=== PATIENT | male | born 2000 | race Two or more races ===

== ENCOUNTER 2023-04-14 10:52 | Inpatient (IN) | payer OTHER, MEDICAID ==
[~2023-04-14] VITALS: Ht 172.7 cm; Wt 51.7 kg
[2023-04-14 13:06] LABS: BASOPHILS % (AUTO) 0.4 % (0.0-2.0); EOSINOPHILS % (AUTO) 1.8 % (1.0-6.0); HEMATOCRIT 41.9 % (41-53); HEMOGLOBIN 13.3 g/dL (13.5-17.5); LYMPHOCYTES # (AUTO) 3.1 K/uL (1.0-4.8); LYMPHOCYTES % (AUTO) 19.8 % (22.0-44.0); MEAN CORPUSCULAR HGB CONC 31.7 G/dL (31.0-37.0); MEAN CORPUSCULAR VOLUME 73 fL (80-100); MONOCYTES % (AUTO) 6.5 % (2.0-9.0); NEUTROPHILS # (AUTO) 11.1 K/uL (1.8-7.7); NEUTROPHILS % (AUTO) 71.5 % (40.0-70.0); PLATELET COUNT (AUTO) 396 K/uL (150-450); RED BLOOD CELL COUNT(AUTO) 5.78 MIL/uL (4.50-5.90)
[2023-04-14 13:17] LABS: ANION GAP 9 mmol/L (8-16); CALCIUM, TOTAL 9.1 mg/dL (8.8-10.5); CARBON DIOXIDE 29 mmol/L (22-29); CHLORIDE 102 mmol/L (98-107); CREATININE 0.76 mg/dL (0.60-1.30); GLOMERULAR FILTR. RATE CALC > 60 mL/min (>60); GLUCOSE,RANDOM 91 mg/dL (70-110); POTASSIUM 4.2 mmol/L (3.5-5.1); SODIUM SERUM 140 mmol/L (136-145)
[2023-04-14 13:22] LABS: ALANINE AMINOTRANSFERASE 62 U/L (12-78); ALBUMIN 3.1 g/dL (3.4-5.0); ALKALINE PHOSPHATASE 154 U/L (46-116); ASPARTATE AMINOTRANSFERASE 31 U/L (15-37); BILIRUBIN,TOTAL 0.2 mg/dL (0.1-1.0); TOTAL PROTEIN, SERUM 8.5 g/dL (6.4-8.2)
[2023-04-14 15:04] LABS: COVID AG,FIA SOURCE NASAL SWAB
[2023-04-14 16:52] VITALS: BP 121/80; PULSE 73; RESP 18; TEMP 99.4
[2023-04-14] MEDS ORDERED: PNEUMOCOCCAL VACCINE POLYVALENT 0.5 ML VIAL [PPSV23] IM. ONE (17:30)
[2023-04-14 20:04] VITALS: BP 135/66; PULSE 93; RESP 18; TEMP 98.1
[2023-04-14 23:25] VITALS: BP 113/71; PULSE 81; RESP 18; TEMP 98
[2023-04-15] VITALS (7 sets, daily range): BP systolic 99–109; BP diastolic 64–69; PULSE 65–95; RESP 16–18; TEMP 97.7–99.3; O2SAT 98–99
[2023-04-15] MEDS ORDERED: SODIUM CHLORIDE 0.9% 250 ML IV ONE (13:43)
[2023-04-15] MEDS: PIPERACILLIN/TAZO 3.375 GM/D5W 50 ML IV SCH ×2 (14:03→21:34)
[2023-04-15] MEDS ORDERED: BISACODYL 10 MG RECTAL RECTAL SUPPOSITORY PR PRN (18:30)
[2023-04-15] MEDS ORDERED: IPRATROPIUM BROMIDE 0.5 MG/2.5 ML NEB SOLUTION NEB PRN (18:30)
[2023-04-15] MEDS ORDERED: MAGNESIUM HYDROXIDE SUSPENSION 30 ML UDCUP PO PRN (18:30)
[2023-04-15] MEDS ORDERED: ALBUTEROL SULFATE 2.5 MG/0.5 ML NEB SOLUTION NEB PRN (18:30)
[2023-04-15] MEDS ORDERED: ONDANSETRON HCL 4 MG/2 ML VIAL IVP PRN (18:30)
[2023-04-15] MEDS ORDERED: ZOLPIDEM TARTRATE 5 MG TABLET PO PRN (18:30)
[2023-04-15] MEDS: DOCUSATE SODIUM 100 MG CAPSULE PO SCH (21:21)
[2023-04-15] MEDS ORDERED: 0.9% SODIUM CHLORIDE 15 ML NEB SOLUTION NEB ONE (22:37)
[2023-04-16] MEDS: HEPARIN SODIUM,PORCINE 5,000 UNITS/ML VIAL SQ SCH ×4 (00:26→23:32)
[2023-04-16] MEDS: PIPERACILLIN/TAZO 3.375 GM/D5W 50 ML IV SCH ×4 (02:14→20:44)
[2023-04-16 05:21] VITALS: BP 111/64; PULSE 59; RESP 18; TEMP 97.8
[2023-04-16 08:30] VITALS: BP 105/65; PULSE 71; RESP 18; TEMP 97.8
[2023-04-16] MEDS: PANTOPRAZOLE SODIUM 40 MG/VIAL IVP SCH (08:43)
[2023-04-16] MEDS: DOCUSATE SODIUM 100 MG CAPSULE PO SCH ×2 (08:43→21:00)
[2023-04-16 12:40] VITALS: BP 120/80; PULSE 88; RESP 17; TEMP 97.4
[2023-04-16] MEDS ORDERED: SODIUM CHLORIDE 0.9% 250 ML IV ONE (16:18)
[2023-04-16 18:35] VITALS: BP 106/66; PULSE 74; RESP 16; TEMP 98.9
[2023-04-16] MEDS ORDERED: *CLINICAL-RX DOSING [ENTER DRUG IN COMMENTS] CLINICAL ONE (19:15)
[2023-04-16 20:16] VITALS: BP 97/61; PULSE 68; RESP 18; TEMP 99.5
[2023-04-16] MEDS: ETHAMBUTOL HCL 400 MG TABLET PO SCH (21:08)
[2023-04-16] MEDS: PYRAZINAMIDE 500 MG TABLET PO SCH (21:08)
[2023-04-16] MEDS: PYRIDOXINE HCL 50 MG TABLET PO SCH (21:08)
[2023-04-16] MEDS: RIFAMPIN 300 MG CAPSULE PO SCH (21:08)
[2023-04-16] MEDS: ISONIAZID 300 MG TABLET PO SCH (21:09)
[2023-04-17] MEDS: PIPERACILLIN/TAZO 3.375 GM/D5W 50 ML IV SCH ×4 (02:28→20:21)
[2023-04-17 04:06] LABS: HIV 1-2 SCREEN 4TH GEN W/RFLX Non Reactive (Non Reactive)
[2023-04-17 05:56] VITALS: BP 100/65; PULSE 61; RESP 16; TEMP 97.8
[2023-04-17 08:15] VITALS: BP 86/56; PULSE 76; RESP 18; TEMP 98
[2023-04-17] MEDS: DOCUSATE SODIUM 100 MG CAPSULE PO SCH ×2 (09:23→20:47)
[2023-04-17] MEDS: HEPARIN SODIUM,PORCINE 5,000 UNITS/ML VIAL SQ SCH ×3 (09:23→23:20)
[2023-04-17] MEDS: PANTOPRAZOLE SODIUM 40 MG/VIAL IVP SCH (09:23)
[2023-04-17] MEDS: PYRAZINAMIDE 500 MG TABLET PO SCH (09:24)
[2023-04-17] MEDS: ISONIAZID 300 MG TABLET PO SCH (09:24)
[2023-04-17] MEDS: ETHAMBUTOL HCL 400 MG TABLET PO SCH (09:24)
[2023-04-17] MEDS: RIFAMPIN 300 MG CAPSULE PO SCH (09:24)
[2023-04-17] MEDS: PYRIDOXINE HCL 50 MG TABLET PO SCH (09:24)
[2023-04-17 12:00] VITALS: BP 92/58; PULSE 70; RESP 20; TEMP 98.1
[2023-04-17 16:50] VITALS: BP 98/54; PULSE 64; RESP 20; TEMP 98.1
[2023-04-17 19:28] VITALS: BP 104/58; PULSE 68; RESP 16; TEMP 99.2
[2023-04-17 20:55] LABS: BASOPHILS % (AUTO) 0.7 % (0.0-2.0); EOSINOPHILS % (AUTO) 3.5 % (1.0-6.0); HEMATOCRIT 42.1 % (41-53); HEMOGLOBIN 13.2 g/dL (13.5-17.5); LYMPHOCYTES # (AUTO) 2.6 K/uL (1.0-4.8); LYMPHOCYTES % (AUTO) 19.9 % (22.0-44.0); MEAN CORPUSCULAR HGB CONC 31.3 G/dL (31.0-37.0); MEAN CORPUSCULAR VOLUME 73 fL (80-100); MONOCYTES % (AUTO) 7.7 % (2.0-9.0); NEUTROPHILS # (AUTO) 8.9 K/uL (1.8-7.7); NEUTROPHILS % (AUTO) 68.2 % (40.0-70.0); PLATELET COUNT (AUTO) 369 K/uL (150-450); RED BLOOD CELL COUNT(AUTO) 5.75 MIL/uL (4.50-5.90); RED CELL DISTRIBUTION WIDTH 18.8 % (11.5-14.5)
[2023-04-17 21:04] LABS: ANION GAP 5 mmol/L (8-16); CALCIUM, TOTAL 8.6 mg/dL (8.8-10.5); CARBON DIOXIDE 28 mmol/L (22-29); CHLORIDE 104 mmol/L (98-107); CREATININE 0.97 mg/dL (0.60-1.30); GLOMERULAR FILTR. RATE CALC > 60 mL/min (>60); GLUCOSE,RANDOM 111 mg/dL (70-110); POTASSIUM 3.7 mmol/L (3.5-5.1); SODIUM SERUM 137 mmol/L (136-145)
[2023-04-17 21:09] LABS: ALANINE AMINOTRANSFERASE 29 U/L (12-78); ALKALINE PHOSPHATASE 149 U/L (46-116); ASPARTATE AMINOTRANSFERASE 21 U/L (15-37); BILIRUBIN,TOTAL 0.6 mg/dL (0.1-1.0); TOTAL PROTEIN, SERUM 8.2 g/dL (6.4-8.2)
[2023-04-18] MEDS: PIPERACILLIN/TAZO 3.375 GM/D5W 50 ML IV SCH ×4 (02:24→20:57)
[2023-04-18 04:33] VITALS: BP 98/58; PULSE 60; RESP 17; TEMP 97.9
[2023-04-18 06:46] LABS: BASOPHILS % (AUTO) 0.5 % (0.0-2.0); EOSINOPHILS % (AUTO) 3.1 % (1.0-6.0); HEMATOCRIT 42.4 % (41-53); HEMOGLOBIN 13.5 g/dL (13.5-17.5); LYMPHOCYTES # (AUTO) 2.9 K/uL (1.0-4.8); LYMPHOCYTES % (AUTO) 22.6 % (22.0-44.0); MEAN CORPUSCULAR HEMOGLOBIN 23.4 pg (26.0-34.0); MEAN CORPUSCULAR HGB CONC 31.9 G/dL (31.0-37.0); MEAN CORPUSCULAR VOLUME 73 fL (80-100); MONOCYTES # (AUTO) 1.2 K/uL (0.1-1.0); MONOCYTES % (AUTO) 9.4 % (2.0-9.0); NEUTROPHILS # (AUTO) 8.3 K/uL (1.8-7.7); NEUTROPHILS % (AUTO) 64.4 % (40.0-70.0); PLATELET COUNT (AUTO) 366 K/uL (150-450); RED BLOOD CELL COUNT(AUTO) 5.78 MIL/uL (4.50-5.90); RED CELL DISTRIBUTION WIDTH 18.5 % (11.5-14.5)
[2023-04-18 07:24] LABS: ALANINE AMINOTRANSFERASE 30 U/L (12-78); ALBUMIN 2.9 g/dL (3.4-5.0); ALKALINE PHOSPHATASE 131 U/L (46-116); ANION GAP 9 mmol/L (8-16); ASPARTATE AMINOTRANSFERASE 21 U/L (15-37); BILIRUBIN,TOTAL 0.4 mg/dL (0.1-1.0); CALCIUM, TOTAL 8.9 mg/dL (8.8-10.5); CARBON DIOXIDE 27 mmol/L (22-29); CHLORIDE 100 mmol/L (98-107); CREATININE 0.92 mg/dL (0.60-1.30); GLOMERULAR FILTR. RATE CALC > 60 mL/min (>60); GLUCOSE,RANDOM 90 mg/dL (70-110); POTASSIUM 4.1 mmol/L (3.5-5.1); SODIUM SERUM 136 mmol/L (136-145); TOTAL PROTEIN, SERUM 8.2 g/dL (6.4-8.2)
[2023-04-18 08:01] VITALS: BP 98/60; PULSE 72; RESP 17; TEMP 98
[2023-04-18] MEDS: RIFAMPIN 300 MG CAPSULE PO SCH (09:23)
[2023-04-18] MEDS: PYRAZINAMIDE 500 MG TABLET PO SCH (09:23)
[2023-04-18] MEDS: PANTOPRAZOLE SODIUM 40 MG/VIAL IVP SCH (09:23)
[2023-04-18] MEDS: HEPARIN SODIUM,PORCINE 5,000 UNITS/ML VIAL SQ SCH ×2 (09:23→16:47)
[2023-04-18] MEDS: DOCUSATE SODIUM 100 MG CAPSULE PO SCH ×2 (09:24→20:57)
[2023-04-18] MEDS: PYRIDOXINE HCL 50 MG TABLET PO SCH (09:24)
[2023-04-18] MEDS: ISONIAZID 300 MG TABLET PO SCH (09:24)
[2023-04-18] MEDS: ETHAMBUTOL HCL 400 MG TABLET PO SCH (09:24)
[2023-04-18 11:37] VITALS: BP 94/56; PULSE 67; RESP 19; TEMP 98.7
[2023-04-18 15:30] VITALS: BP 113/68; PULSE 83; RESP 17; TEMP 98.8
[2023-04-18 21:14] VITALS: BP 107/62; PULSE 66; RESP 18; TEMP 97.9
[2023-04-19] MEDS: HEPARIN SODIUM,PORCINE 5,000 UNITS/ML VIAL SQ SCH ×4 (00:51→23:30)
[2023-04-19] MEDS: PIPERACILLIN/TAZO 3.375 GM/D5W 50 ML IV SCH ×4 (01:40→20:10)
[2023-04-19 01:43] VITALS: BP 104/69; PULSE 63; RESP 20; TEMP 99.1
[2023-04-19 05:18] VITALS: BP 104/63; PULSE 61; RESP 20; TEMP 99
[2023-04-19 07:25] LABS: BASOPHILS % (AUTO) 0.4 % (0.0-2.0); HEMATOCRIT 41.3 % (41-53); HEMOGLOBIN 12.9 g/dL (13.5-17.5); LYMPHOCYTES % (AUTO) 27.3 % (22.0-44.0); MEAN CORPUSCULAR HEMOGLOBIN 22.8 pg (26.0-34.0); MEAN CORPUSCULAR HGB CONC 31.3 G/dL (31.0-37.0); MEAN CORPUSCULAR VOLUME 73 fL (80-100); MONOCYTES # (AUTO) 1.2 K/uL (0.1-1.0); MONOCYTES % (AUTO) 8.4 % (2.0-9.0); NEUTROPHILS # (AUTO) 8.8 K/uL (1.8-7.7); NEUTROPHILS % (AUTO) 60.9 % (40.0-70.0); PLATELET COUNT (AUTO) 371 K/uL (150-450); RED BLOOD CELL COUNT(AUTO) 5.66 MIL/uL (4.50-5.90)
[2023-04-19 07:39] LABS: ALANINE AMINOTRANSFERASE 35 U/L (12-78); ALBUMIN 2.9 g/dL (3.4-5.0); ALKALINE PHOSPHATASE 138 U/L (46-116); ANION GAP 8 mmol/L (8-16); ASPARTATE AMINOTRANSFERASE 33 U/L (15-37); BILIRUBIN,TOTAL 0.3 mg/dL (0.1-1.0); CALCIUM, TOTAL 8.9 mg/dL (8.8-10.5); CARBON DIOXIDE 28 mmol/L (22-29); CHLORIDE 103 mmol/L (98-107); CREATININE 0.82 mg/dL (0.60-1.30); GLOMERULAR FILTR. RATE CALC > 60 mL/min (>60); GLUCOSE,RANDOM 95 mg/dL (70-110); POTASSIUM 3.9 mmol/L (3.5-5.1); SODIUM SERUM 138 mmol/L (136-145); TOTAL PROTEIN, SERUM 8.3 g/dL (6.4-8.2)
[2023-04-19 08:14] VITALS: BP 142/82; PULSE 70; RESP 19; TEMP 98.6
[2023-04-19] MEDS: ETHAMBUTOL HCL 100 MG TABLET PO SCH (08:43)
[2023-04-19] MEDS: RIFAMPIN 300 MG CAPSULE PO SCH (08:43)
[2023-04-19] MEDS: DOCUSATE SODIUM 100 MG CAPSULE PO SCH ×2 (08:43→20:10)
[2023-04-19] MEDS: ISONIAZID 300 MG TABLET PO SCH (08:44)
[2023-04-19] MEDS: ETHAMBUTOL HCL 400 MG TABLET PO SCH (08:44)
[2023-04-19] MEDS: PYRIDOXINE HCL 50 MG TABLET PO SCH (08:44)
[2023-04-19] MEDS: PYRAZINAMIDE 500 MG TABLET PO SCH (08:44)
[2023-04-19] MEDS: PANTOPRAZOLE SODIUM 40 MG/VIAL IVP SCH (08:45)
[2023-04-19] MEDS ORDERED: SODIUM CHLORIDE 0.9% 1,000 ML ONE (13:17)
[2023-04-19 15:06] VITALS: BP 120/77; PULSE 69; RESP 20; TEMP 98.5
[2023-04-19 16:28] VITALS: BP 115/72; PULSE 66; RESP 20; TEMP 97.5
[2023-04-19] MEDS ORDERED: SODIUM CHLORIDE 0.9% 500 ML IV ONE (19:42)
[2023-04-19 20:24] VITALS: BP 114/70; PULSE 75; RESP 20; TEMP 98.5
[2023-04-20] MEDS: PIPERACILLIN/TAZO 3.375 GM/D5W 50 ML IV SCH ×4 (01:40→20:33)
[2023-04-20 05:44] VITALS: BP 119/69; PULSE 72; RESP 20; TEMP 98.1
[2023-04-20 07:32] LABS: BASOPHILS % (AUTO) 0.7 % (0.0-2.0); EOSINOPHILS % (AUTO) 3.2 % (1.0-6.0); HEMATOCRIT 41.7 % (41-53); HEMOGLOBIN 13.1 g/dL (13.5-17.5); LYMPHOCYTES # (AUTO) 3.4 K/uL (1.0-4.8); LYMPHOCYTES % (AUTO) 23.2 % (22.0-44.0); MEAN CORPUSCULAR HGB CONC 31.4 G/dL (31.0-37.0); MEAN CORPUSCULAR VOLUME 73 fL (80-100); MONOCYTES # (AUTO) 1.5 K/uL (0.1-1.0); MONOCYTES % (AUTO) 10.1 % (2.0-9.0); NEUTROPHILS # (AUTO) 9.3 K/uL (1.8-7.7); NEUTROPHILS % (AUTO) 62.8 % (40.0-70.0); PLATELET COUNT (AUTO) 377 K/uL (150-450); RED BLOOD CELL COUNT(AUTO) 5.71 MIL/uL (4.50-5.90); RED CELL DISTRIBUTION WIDTH 18.7 % (11.5-14.5)
[2023-04-20 07:51] VITALS: BP 110/64; PULSE 70; RESP 20; TEMP 98.4
[2023-04-20 07:54] LABS: ALANINE AMINOTRANSFERASE 63 U/L (12-78); ALBUMIN 2.8 g/dL (3.4-5.0); ALKALINE PHOSPHATASE 132 U/L (46-116); ANION GAP 7 mmol/L (8-16); ASPARTATE AMINOTRANSFERASE 62 U/L (15-37); BILIRUBIN,TOTAL 0.3 mg/dL (0.1-1.0); CALCIUM, TOTAL 8.9 mg/dL (8.8-10.5); CARBON DIOXIDE 28 mmol/L (22-29); CHLORIDE 100 mmol/L (98-107); CREATININE 0.87 mg/dL (0.60-1.30); GLOMERULAR FILTR. RATE CALC > 60 mL/min (>60); GLUCOSE,RANDOM 83 mg/dL (70-110); POTASSIUM 4.1 mmol/L (3.5-5.1); SODIUM SERUM 135 mmol/L (136-145); TOTAL PROTEIN, SERUM 8.2 g/dL (6.4-8.2)
[2023-04-20] MEDS: ETHAMBUTOL HCL 100 MG TABLET PO SCH (09:01)
[2023-04-20] MEDS: HEPARIN SODIUM,PORCINE 5,000 UNITS/ML VIAL SQ SCH ×3 (09:01→23:26)
[2023-04-20] MEDS: PANTOPRAZOLE SODIUM 40 MG/VIAL IVP SCH (09:01)
[2023-04-20] MEDS: ETHAMBUTOL HCL 400 MG TABLET PO SCH (09:03)
[2023-04-20] MEDS: DOCUSATE SODIUM 100 MG CAPSULE PO SCH ×2 (09:04→20:33)
[2023-04-20] MEDS: RIFAMPIN 300 MG CAPSULE PO SCH (09:04)
[2023-04-20] MEDS: ISONIAZID 300 MG TABLET PO SCH (09:05)
[2023-04-20] MEDS: PYRAZINAMIDE 500 MG TABLET PO SCH (09:05)
[2023-04-20] MEDS: PYRIDOXINE HCL 50 MG TABLET PO SCH (09:05)
[2023-04-20 15:36] VITALS: BP 120/68; PULSE 74; RESP 18; TEMP 98.2
[2023-04-20 19:35] VITALS: BP 139/74; PULSE 80; RESP 20; TEMP 98.1
[2023-04-21] MEDS: PIPERACILLIN/TAZO 3.375 GM/D5W 50 ML IV SCH ×4 (01:32→20:13)
[2023-04-21 04:58] VITALS: BP 118/72; PULSE 71; RESP 20; TEMP 98.3
[2023-04-21 07:22] LABS: BASOPHILS % (AUTO) 0.6 % (0.0-2.0); EOSINOPHILS % (AUTO) 2.6 % (1.0-6.0); HEMATOCRIT 43.9 % (41-53); HEMOGLOBIN 13.7 g/dL (13.5-17.5); LYMPHOCYTES # (AUTO) 3.8 K/uL (1.0-4.8); LYMPHOCYTES % (AUTO) 26.1 % (22.0-44.0); MEAN CORPUSCULAR HGB CONC 31.2 G/dL (31.0-37.0); MEAN CORPUSCULAR VOLUME 74 fL (80-100); MONOCYTES # (AUTO) 1.5 K/uL (0.1-1.0); MONOCYTES % (AUTO) 10.4 % (2.0-9.0); NEUTROPHILS # (AUTO) 8.8 K/uL (1.8-7.7); NEUTROPHILS % (AUTO) 60.3 % (40.0-70.0); PLATELET COUNT (AUTO) 371 K/uL (150-450); RED BLOOD CELL COUNT(AUTO) 5.95 MIL/uL (4.50-5.90); RED CELL DISTRIBUTION WIDTH 19.3 % (11.5-14.5)
[2023-04-21 07:46] LABS: ALANINE AMINOTRANSFERASE 86 U/L (12-78); ALBUMIN 2.9 g/dL (3.4-5.0); ALKALINE PHOSPHATASE 144 U/L (46-116); ANION GAP 9 mmol/L (8-16); ASPARTATE AMINOTRANSFERASE 87 U/L (15-37); BILIRUBIN,TOTAL 0.4 mg/dL (0.1-1.0); CALCIUM, TOTAL 9.3 mg/dL (8.8-10.5); CARBON DIOXIDE 28 mmol/L (22-29); CHLORIDE 101 mmol/L (98-107); CREATININE 0.87 mg/dL (0.60-1.30); GLOMERULAR FILTR. RATE CALC > 60 mL/min (>60); GLUCOSE,RANDOM 82 mg/dL (70-110); POTASSIUM 4.2 mmol/L (3.5-5.1); SODIUM SERUM 138 mmol/L (136-145); TOTAL PROTEIN, SERUM 8.6 g/dL (6.4-8.2)
[2023-04-21 08:00] VITALS: BP 115/63; PULSE 86; RESP 19; TEMP 98.3
[2023-04-21 08:19] VITALS: BP_SYST 115; BP_SYST 121; BP_DIAS 58; BP_DIAS 63; PULSE 74; PULSE 87; RESP 18; RESP 19; TEMP 98.1; TEMP 98.3
[2023-04-21] MEDS: PANTOPRAZOLE SODIUM 40 MG/VIAL IVP SCH (08:27)
[2023-04-21] MEDS: HEPARIN SODIUM,PORCINE 5,000 UNITS/ML VIAL SQ SCH ×3 (08:27→23:59)
[2023-04-21] MEDS: ETHAMBUTOL HCL 400 MG TABLET PO SCH (08:28)
[2023-04-21] MEDS: ETHAMBUTOL HCL 100 MG TABLET PO SCH (08:28)
[2023-04-21] MEDS: ISONIAZID 300 MG TABLET PO SCH (08:29)
[2023-04-21] MEDS: RIFAMPIN 300 MG CAPSULE PO SCH (08:29)
[2023-04-21] MEDS: PYRIDOXINE HCL 50 MG TABLET PO SCH (08:29)
[2023-04-21] MEDS: DOCUSATE SODIUM 100 MG CAPSULE PO SCH ×2 (08:29→20:13)
[2023-04-21] MEDS: PYRAZINAMIDE 500 MG TABLET PO SCH (08:30)
[2023-04-21 15:12] VITALS: BP 114/59; PULSE 75; RESP 18; TEMP 98.6
[2023-04-21 20:18] VITALS: BP 119/74; PULSE 79; RESP 19; TEMP 98.4
[2023-04-22] MEDS ORDERED: SODIUM CHLORIDE 0.9% 500 ML IV ONE (01:01)
[2023-04-22] MEDS: PIPERACILLIN/TAZO 3.375 GM/D5W 50 ML IV SCH ×4 (01:07→20:13)
[2023-04-22 04:26] VITALS: BP 117/66; PULSE 77; RESP 18; TEMP 98.8
[2023-04-22 07:29] LABS: BASOPHILS % (AUTO) 0.5 % (0.0-2.0); EOSINOPHILS % (AUTO) 2.7 % (1.0-6.0); HEMATOCRIT 41.2 % (41-53); LYMPHOCYTES # (AUTO) 3.3 K/uL (1.0-4.8); LYMPHOCYTES % (AUTO) 21.8 % (22.0-44.0); MEAN CORPUSCULAR HEMOGLOBIN 23.1 pg (26.0-34.0); MEAN CORPUSCULAR HGB CONC 31.5 G/dL (31.0-37.0); MEAN CORPUSCULAR VOLUME 73 fL (80-100); MONOCYTES # (AUTO) 1.4 K/uL (0.1-1.0); MONOCYTES % (AUTO) 9.3 % (2.0-9.0); NEUTROPHILS # (AUTO) 10.1 K/uL (1.8-7.7); NEUTROPHILS % (AUTO) 65.7 % (40.0-70.0); PLATELET COUNT (AUTO) 370 K/uL (150-450); RED BLOOD CELL COUNT(AUTO) 5.61 MIL/uL (4.50-5.90); RED CELL DISTRIBUTION WIDTH 18.6 % (11.5-14.5)
[2023-04-22 07:30] VITALS: BP 97/58; PULSE 81; RESP 19; TEMP 98.5
[2023-04-22 07:43] LABS: ALANINE AMINOTRANSFERASE 94 U/L (12-78); ALBUMIN 2.8 g/dL (3.4-5.0); ALKALINE PHOSPHATASE 144 U/L (46-116); ANION GAP 9 mmol/L (8-16); ASPARTATE AMINOTRANSFERASE 72 U/L (15-37); BILIRUBIN,TOTAL 0.4 mg/dL (0.1-1.0); CALCIUM, TOTAL 8.8 mg/dL (8.8-10.5); CARBON DIOXIDE 27 mmol/L (22-29); CHLORIDE 99 mmol/L (98-107); CREATININE 0.75 mg/dL (0.60-1.30); GLOMERULAR FILTR. RATE CALC > 60 mL/min (>60); GLUCOSE,RANDOM 88 mg/dL (70-110); POTASSIUM 3.8 mmol/L (3.5-5.1); SODIUM SERUM 135 mmol/L (136-145); TOTAL PROTEIN, SERUM 8.2 g/dL (6.4-8.2)
[2023-04-22] MEDS: ETHAMBUTOL HCL 100 MG TABLET PO SCH (09:11)
[2023-04-22] MEDS: PYRAZINAMIDE 500 MG TABLET PO SCH (09:13)
[2023-04-22] MEDS: RIFAMPIN 300 MG CAPSULE PO SCH (09:13)
[2023-04-22] MEDS: HEPARIN SODIUM,PORCINE 5,000 UNITS/ML VIAL SQ SCH ×3 (09:14→23:30)
[2023-04-22] MEDS: PYRIDOXINE HCL 50 MG TABLET PO SCH (09:14)
[2023-04-22] MEDS: PANTOPRAZOLE SODIUM 40 MG/VIAL IVP SCH (09:14)
[2023-04-22] MEDS: DOCUSATE SODIUM 100 MG CAPSULE PO SCH ×2 (09:14→20:13)
[2023-04-22] MEDS: ETHAMBUTOL HCL 400 MG TABLET PO SCH (09:14)
[2023-04-22] MEDS: ISONIAZID 300 MG TABLET PO SCH (09:14)
[2023-04-22 14:36] VITALS: BP 116/79; PULSE 91; RESP 20; TEMP 98.5
[2023-04-22 20:01] VITALS: BP 130/71; PULSE 95; RESP 20; TEMP 98.6
[2023-04-23] MEDS: PIPERACILLIN/TAZO 3.375 GM/D5W 50 ML IV SCH ×4 (01:10→21:18)
[2023-04-23 05:30] VITALS: BP 100/51; PULSE 79; RESP 18; TEMP 98.4
[2023-04-23 06:55] LABS: BASOPHILS % (AUTO) 0.6 % (0.0-2.0); EOSINOPHILS % (AUTO) 3.1 % (1.0-6.0); HEMATOCRIT 42.1 % (41-53); HEMOGLOBIN 13.4 g/dL (13.5-17.5); LYMPHOCYTES % (AUTO) 21.5 % (22.0-44.0); MEAN CORPUSCULAR HEMOGLOBIN 23.6 pg (26.0-34.0); MEAN CORPUSCULAR HGB CONC 31.8 G/dL (31.0-37.0); MEAN CORPUSCULAR VOLUME 74 fL (80-100); MONOCYTES # (AUTO) 1.5 K/uL (0.1-1.0); MONOCYTES % (AUTO) 10.3 % (2.0-9.0); NEUTROPHILS # (AUTO) 9.2 K/uL (1.8-7.7); NEUTROPHILS % (AUTO) 64.5 % (40.0-70.0); PLATELET COUNT (AUTO) 345 K/uL (150-450); RED BLOOD CELL COUNT(AUTO) 5.67 MIL/uL (4.50-5.90); RED CELL DISTRIBUTION WIDTH 18.8 % (11.5-14.5)
[2023-04-23 07:21] LABS: ALANINE AMINOTRANSFERASE 101 U/L (12-78); ALBUMIN 2.9 g/dL (3.4-5.0); ALKALINE PHOSPHATASE 161 U/L (46-116); ANION GAP 8 mmol/L (8-16); ASPARTATE AMINOTRANSFERASE 69 U/L (15-37); BILIRUBIN,TOTAL 0.2 mg/dL (0.1-1.0); CALCIUM, TOTAL 9.2 mg/dL (8.8-10.5); CARBON DIOXIDE 28 mmol/L (22-29); CHLORIDE 101 mmol/L (98-107); CREATININE 0.81 mg/dL (0.60-1.30); GLOMERULAR FILTR. RATE CALC > 60 mL/min (>60); GLUCOSE,RANDOM 100 mg/dL (70-110); POTASSIUM 4.4 mmol/L (3.5-5.1); SODIUM SERUM 137 mmol/L (136-145); TOTAL PROTEIN, SERUM 8.4 g/dL (6.4-8.2)
[2023-04-23 07:24] VITALS: BP 102/64; PULSE 83; RESP 20; TEMP 97.9
[2023-04-23] MEDS: ETHAMBUTOL HCL 100 MG TABLET PO SCH (08:05)
[2023-04-23] MEDS: ETHAMBUTOL HCL 400 MG TABLET PO SCH (08:05)
[2023-04-23] MEDS: PYRAZINAMIDE 500 MG TABLET PO SCH (08:06)
[2023-04-23] MEDS: DOCUSATE SODIUM 100 MG CAPSULE PO SCH ×2 (08:06→21:19)
[2023-04-23] MEDS: RIFAMPIN 300 MG CAPSULE PO SCH (08:06)
[2023-04-23] MEDS: PYRIDOXINE HCL 50 MG TABLET PO SCH (08:07)
[2023-04-23] MEDS: HEPARIN SODIUM,PORCINE 5,000 UNITS/ML VIAL SQ SCH ×2 (08:07→16:12)
[2023-04-23] MEDS: ISONIAZID 300 MG TABLET PO SCH (08:07)
[2023-04-23] MEDS: PANTOPRAZOLE SODIUM 40 MG/VIAL IVP SCH (08:53)
[2023-04-23 15:37] VITALS: BP 108/69; PULSE 69; RESP 20; TEMP 98.9
[2023-04-23 19:55] VITALS: BP 109/65; PULSE 88; RESP 18; TEMP 98.9
[2023-04-23 22:06] LABS: QUANTIFERON, TB GOLD PLUS Positive (Negative)
[2023-04-24] MEDS: HEPARIN SODIUM,PORCINE 5,000 UNITS/ML VIAL SQ SCH ×3 (00:34→17:06)
[2023-04-24] MEDS: PIPERACILLIN/TAZO 3.375 GM/D5W 50 ML IV SCH ×4 (01:29→20:56)
[2023-04-24 04:30] VITALS: BP 123/64; PULSE 77; RESP 18; TEMP 99.3
[2023-04-24 06:50] LABS: BASOPHILS % (AUTO) 0.4 % (0.0-2.0); EOSINOPHILS % (AUTO) 2.1 % (1.0-6.0); HEMATOCRIT 42.2 % (41-53); HEMOGLOBIN 13.6 g/dL (13.5-17.5); LYMPHOCYTES # (AUTO) 3.4 K/uL (1.0-4.8); LYMPHOCYTES % (AUTO) 20.5 % (22.0-44.0); MEAN CORPUSCULAR HEMOGLOBIN 23.6 pg (26.0-34.0); MEAN CORPUSCULAR HGB CONC 32.2 G/dL (31.0-37.0); MEAN CORPUSCULAR VOLUME 73 fL (80-100); MONOCYTES # (AUTO) 1.8 K/uL (0.1-1.0); MONOCYTES % (AUTO) 11.1 % (2.0-9.0); NEUTROPHILS # (AUTO) 10.9 K/uL (1.8-7.7); NEUTROPHILS % (AUTO) 65.9 % (40.0-70.0); RED BLOOD CELL COUNT(AUTO) 5.76 MIL/uL (4.50-5.90); RED CELL DISTRIBUTION WIDTH 19.2 % (11.5-14.5)
[2023-04-24 07:20] LABS: ALANINE AMINOTRANSFERASE 106 U/L (12-78); ALBUMIN 2.9 g/dL (3.4-5.0); ALKALINE PHOSPHATASE 156 U/L (46-116); ANION GAP 9 mmol/L (8-16); ASPARTATE AMINOTRANSFERASE 69 U/L (15-37); BILIRUBIN,TOTAL 0.5 mg/dL (0.1-1.0); CALCIUM, TOTAL 9.2 mg/dL (8.8-10.5); CARBON DIOXIDE 26 mmol/L (22-29); CHLORIDE 99 mmol/L (98-107); CREATININE 0.74 mg/dL (0.60-1.30); GLOMERULAR FILTR. RATE CALC > 60 mL/min (>60); GLUCOSE,RANDOM 96 mg/dL (70-110); POTASSIUM 3.9 mmol/L (3.5-5.1); SODIUM SERUM 134 mmol/L (136-145); TOTAL PROTEIN, SERUM 8.5 g/dL (6.4-8.2)
[2023-04-24 07:26] LABS: PLATELET COUNT (AUTO) 356 K/uL (150-450)
[2023-04-24] MEDS: ETHAMBUTOL HCL 400 MG TABLET PO SCH (07:59)
[2023-04-24] MEDS: PYRAZINAMIDE 500 MG TABLET PO SCH (07:59)
[2023-04-24] MEDS: ETHAMBUTOL HCL 100 MG TABLET PO SCH (07:59)
[2023-04-24] MEDS: PYRIDOXINE HCL 50 MG TABLET PO SCH (08:00)
[2023-04-24] MEDS: DOCUSATE SODIUM 100 MG CAPSULE PO SCH ×2 (08:00→20:57)
[2023-04-24] MEDS: ISONIAZID 300 MG TABLET PO SCH (08:00)
[2023-04-24] MEDS: RIFAMPIN 300 MG CAPSULE PO SCH (08:00)
[2023-04-24 08:05] VITALS: BP 120/70; PULSE 99; RESP 20; TEMP 99.1
[2023-04-24] MEDS: PANTOPRAZOLE SODIUM 40 MG/VIAL IVP SCH (08:06)
[2023-04-24 15:58] VITALS: BP 113/63; PULSE 85; RESP 20; TEMP 98.8
[2023-04-24 17:27] LABS: APPEARANCE,URINE CLEAR (CLEAR); BILIRUBIN,URINE NEGATIVE (NEGATIVE); GLUCOSE, URINE (UA) NEGATIVE (NEGATIVE); KETONES,URINE NEGATIVE (NEGATIVE); LEUKOCYTE ESTERASE ,URINE NEGATIVE (NEGATIVE); NITRATE,URINE NEGATIVE (NEGATIVE); OCCULT BLOOD,URINE NEGATIVE (NEGATIVE); PROTEIN,URINE TRACE mg/dL (NEGATIVE); SPECIFIC GRAVITIY, URINE 1.019 (1.003-1.030); UROBILINOGEN,URINE <=1.0 mg/dL (<=1.0)
[2023-04-24 17:52] LABS: BACTERIA,URINE Rare /HPF (None Seen); RBC,URINE 0-2 /HPF (0-2); SQUAMOUS EPITHELIAL CELL,UR Rare /LPF (None Seen); WBC,URINE 0-2 /HPF (0-5)
[2023-04-24 20:01] VITALS: BP 133/63; PULSE 82; RESP 20; TEMP 98.1
[2023-04-25] MEDS: HEPARIN SODIUM,PORCINE 5,000 UNITS/ML VIAL SQ SCH ×3 (00:23→15:09)
[2023-04-25] MEDS: PIPERACILLIN/TAZO 3.375 GM/D5W 50 ML IV SCH ×4 (01:36→21:01)
[2023-04-25 05:05] VITALS: BP 101/59; PULSE 86; RESP 20; TEMP 98.5
[2023-04-25 06:29] LABS: BASOPHILS % (AUTO) 0.4 % (0.0-2.0); HEMATOCRIT 41.6 % (41-53); HEMOGLOBIN 13.2 g/dL (13.5-17.5); LYMPHOCYTES # (AUTO) 3.4 K/uL (1.0-4.8); LYMPHOCYTES % (AUTO) 21.7 % (22.0-44.0); MEAN CORPUSCULAR HEMOGLOBIN 23.7 pg (26.0-34.0); MEAN CORPUSCULAR HGB CONC 31.7 G/dL (31.0-37.0); MEAN CORPUSCULAR VOLUME 75 fL (80-100); MONOCYTES # (AUTO) 1.8 K/uL (0.1-1.0); MONOCYTES % (AUTO) 11.8 % (2.0-9.0); NEUTROPHILS % (AUTO) 64.1 % (40.0-70.0); PLATELET COUNT (AUTO) 351 K/uL (150-450); RED BLOOD CELL COUNT(AUTO) 5.57 MIL/uL (4.50-5.90); RED CELL DISTRIBUTION WIDTH 19.7 % (11.5-14.5)
[2023-04-25 06:43] LABS: ALANINE AMINOTRANSFERASE 120 U/L (12-78); ALBUMIN 2.8 g/dL (3.4-5.0); ALKALINE PHOSPHATASE < 11 U/L (46-116); ANION GAP 11 mmol/L (8-16); ASPARTATE AMINOTRANSFERASE 89 U/L (15-37); BILIRUBIN,TOTAL 0.3 mg/dL (0.1-1.0); CALCIUM, TOTAL 9.2 mg/dL (8.8-10.5); CARBON DIOXIDE 26 mmol/L (22-29); CHLORIDE 99 mmol/L (98-107); GLOMERULAR FILTR. RATE CALC > 60 mL/min (>60); GLUCOSE,RANDOM 81 mg/dL (70-110); POTASSIUM 4.1 mmol/L (3.5-5.1); SODIUM SERUM 136 mmol/L (136-145); TOTAL PROTEIN, SERUM 8.6 g/dL (6.4-8.2)
[2023-04-25 07:25] VITALS: BP 110/62; PULSE 84; RESP 20; TEMP 98.2
[2023-04-25] MEDS: PYRAZINAMIDE 500 MG TABLET PO SCH (08:47)
[2023-04-25] MEDS: ETHAMBUTOL HCL 100 MG TABLET PO SCH (08:48)
[2023-04-25] MEDS: ETHAMBUTOL HCL 400 MG TABLET PO SCH (08:48)
[2023-04-25] MEDS: RIFAMPIN 300 MG CAPSULE PO SCH (08:48)
[2023-04-25] MEDS: ISONIAZID 300 MG TABLET PO SCH (08:49)
[2023-04-25] MEDS: DOCUSATE SODIUM 100 MG CAPSULE PO SCH ×2 (08:49→21:01)
[2023-04-25] MEDS: PANTOPRAZOLE SODIUM 40 MG/VIAL IVP SCH (08:49)
[2023-04-25] MEDS: PYRIDOXINE HCL 50 MG TABLET PO SCH (08:50)
[2023-04-25] MEDS ORDERED: SODIUM CHLORIDE 0.9% 500 ML IV ONE (15:10)
[2023-04-25 15:17] VITALS: BP 118/64; PULSE 82; RESP 20; TEMP 98.1
[2023-04-25 19:48] VITALS: BP 131/67; PULSE 83; RESP 20; TEMP 98.3
[2023-04-26] MEDS: HEPARIN SODIUM,PORCINE 5,000 UNITS/ML VIAL SQ SCH ×3 (00:17→16:00)
[2023-04-26] MEDS: PIPERACILLIN/TAZO 3.375 GM/D5W 50 ML IV SCH ×4 (01:16→20:04)
[2023-04-26 04:51] VITALS: BP 121/70; PULSE 88; RESP 20; TEMP 98.6
[2023-04-26 07:24] LABS: BASOPHILS % (AUTO) 0.4 % (0.0-2.0); EOSINOPHILS % (AUTO) 3.2 % (1.0-6.0); HEMATOCRIT 41.6 % (41-53); HEMOGLOBIN 13.1 g/dL (13.5-17.5); LYMPHOCYTES # (AUTO) 0.6 K/uL (1.0-4.8); LYMPHOCYTES % (AUTO) 3.9 % (22.0-44.0); MEAN CORPUSCULAR HEMOGLOBIN 23.4 pg (26.0-34.0); MEAN CORPUSCULAR HGB CONC 31.5 G/dL (31.0-37.0); MEAN CORPUSCULAR VOLUME 74 fL (80-100); MONOCYTES # (AUTO) 3.3 K/uL (0.1-1.0); MONOCYTES % (AUTO) 20.6 % (2.0-9.0); NEUTROPHILS # (AUTO) 11.4 K/uL (1.8-7.7); NEUTROPHILS % (AUTO) 71.9 % (40.0-70.0); PLATELET COUNT (AUTO) 374 K/uL (150-450); RED CELL DISTRIBUTION WIDTH 19.5 % (11.5-14.5)
[2023-04-26 07:36] LABS: ALANINE AMINOTRANSFERASE 150 U/L (12-78); ALBUMIN 2.8 g/dL (3.4-5.0); ALKALINE PHOSPHATASE 165 U/L (46-116); ANION GAP 7 mmol/L (8-16); ASPARTATE AMINOTRANSFERASE 96 U/L (15-37); BILIRUBIN,TOTAL 0.4 mg/dL (0.1-1.0); CALCIUM, TOTAL 9.4 mg/dL (8.8-10.5); CARBON DIOXIDE 28 mmol/L (22-29); CHLORIDE 99 mmol/L (98-107); GLOMERULAR FILTR. RATE CALC > 60 mL/min (>60); GLUCOSE,RANDOM 105 mg/dL (70-110); SODIUM SERUM 134 mmol/L (136-145); TOTAL PROTEIN, SERUM 8.8 g/dL (6.4-8.2)
[2023-04-26 07:49] VITALS: BP 121/68; PULSE 96; RESP 18; TEMP 99.1
[2023-04-26] MEDS: ETHAMBUTOL HCL 400 MG TABLET PO SCH (09:08)
[2023-04-26] MEDS: ISONIAZID 300 MG TABLET PO SCH (09:08)
[2023-04-26] MEDS: PYRAZINAMIDE 500 MG TABLET PO SCH (09:08)
[2023-04-26] MEDS: PANTOPRAZOLE SODIUM 40 MG/VIAL IVP SCH (09:08)
[2023-04-26] MEDS: DOCUSATE SODIUM 100 MG CAPSULE PO SCH ×2 (09:09→20:05)
[2023-04-26] MEDS: RIFAMPIN 300 MG CAPSULE PO SCH (09:09)
[2023-04-26] MEDS: ETHAMBUTOL HCL 100 MG TABLET PO SCH (09:09)
[2023-04-26] MEDS: PYRIDOXINE HCL 50 MG TABLET PO SCH (09:09)
[2023-04-26 15:24] VITALS: BP 121/71; PULSE 65; RESP 18; TEMP 99
[2023-04-26 20:05] VITALS: BP 127/81; PULSE 90; RESP 18; TEMP 99
[2023-04-27] MEDS: HEPARIN SODIUM,PORCINE 5,000 UNITS/ML VIAL SQ SCH ×4 (00:12→23:22)
[2023-04-27] MEDS: PIPERACILLIN/TAZO 3.375 GM/D5W 50 ML IV SCH ×3 (03:32→14:23)
[2023-04-27] MEDS ORDERED: SODIUM CHLORIDE 0.9% 0 ML IV ONE (03:34)
[2023-04-27 05:40] VITALS: BP 110/58; PULSE 86; RESP 18; TEMP 98
[2023-04-27 07:21] LABS: BASOPHILS % (AUTO) 0.5 % (0.0-2.0); EOSINOPHILS % (AUTO) 1.5 % (1.0-6.0); HEMATOCRIT 40.2 % (41-53); LYMPHOCYTES # (AUTO) 2.6 K/uL (1.0-4.8); LYMPHOCYTES % (AUTO) 16.4 % (22.0-44.0); MEAN CORPUSCULAR HEMOGLOBIN 23.9 pg (26.0-34.0); MEAN CORPUSCULAR HGB CONC 32.3 G/dL (31.0-37.0); MEAN CORPUSCULAR VOLUME 74 fL (80-100); MONOCYTES # (AUTO) 1.7 K/uL (0.1-1.0); MONOCYTES % (AUTO) 10.8 % (2.0-9.0); NEUTROPHILS # (AUTO) 11.2 K/uL (1.8-7.7); NEUTROPHILS % (AUTO) 70.8 % (40.0-70.0); PLATELET COUNT (AUTO) 348 K/uL (150-450); RED BLOOD CELL COUNT(AUTO) 5.44 MIL/uL (4.50-5.90); RED CELL DISTRIBUTION WIDTH 19.2 % (11.5-14.5)
[2023-04-27 07:50] LABS: ALANINE AMINOTRANSFERASE 165 U/L (12-78); ALBUMIN 2.8 g/dL (3.4-5.0); ALKALINE PHOSPHATASE 159 U/L (46-116); ANION GAP 10 mmol/L (8-16); ASPARTATE AMINOTRANSFERASE 141 U/L (15-37); BILIRUBIN,TOTAL 0.5 mg/dL (0.1-1.0); CALCIUM, TOTAL 9.2 mg/dL (8.8-10.5); CARBON DIOXIDE 26 mmol/L (22-29); CHLORIDE 99 mmol/L (98-107); CREATININE 0.77 mg/dL (0.60-1.30); GLOMERULAR FILTR. RATE CALC > 60 mL/min (>60); GLUCOSE,RANDOM 106 mg/dL (70-110); SODIUM SERUM 135 mmol/L (136-145); TOTAL PROTEIN, SERUM 8.4 g/dL (6.4-8.2)
[2023-04-27 07:53] VITALS: BP 115/65; PULSE 89; RESP 18; TEMP 99.2
[2023-04-27] MEDS ORDERED: SODIUM CHLORIDE 0.9% 500 ML IV ONE (08:05)
[2023-04-27] MEDS: DOCUSATE SODIUM 100 MG CAPSULE PO SCH ×2 (08:23→20:19)
[2023-04-27] MEDS: PYRIDOXINE HCL 50 MG TABLET PO SCH (08:23)
[2023-04-27] MEDS: PYRAZINAMIDE 500 MG TABLET PO SCH (08:24)
[2023-04-27] MEDS: ETHAMBUTOL HCL 100 MG TABLET PO SCH (08:24)
[2023-04-27] MEDS: ISONIAZID 300 MG TABLET PO SCH (08:24)
[2023-04-27] MEDS: ETHAMBUTOL HCL 400 MG TABLET PO SCH (08:25)
[2023-04-27] MEDS: RIFAMPIN 300 MG CAPSULE PO SCH (08:26)
[2023-04-27] MEDS: PANTOPRAZOLE SODIUM 40 MG/VIAL IVP SCH (08:52)
[2023-04-27 15:22] VITALS: BP 128/74; PULSE 97; RESP 18; TEMP 98.8
[2023-04-27 19:54] VITALS: BP 117/83; PULSE 89; RESP 18; TEMP 99.4
[2023-04-28 05:19] VITALS: BP 119/77; PULSE 76; RESP 18; TEMP 99
[2023-04-28 06:59] LABS: BASOPHILS % (AUTO) 0.4 % (0.0-2.0); EOSINOPHILS % (AUTO) 2.4 % (1.0-6.0); HEMOGLOBIN 12.9 g/dL (13.5-17.5); LYMPHOCYTES % (AUTO) 19.5 % (22.0-44.0); MEAN CORPUSCULAR HEMOGLOBIN 24.1 pg (26.0-34.0); MEAN CORPUSCULAR HGB CONC 32.4 G/dL (31.0-37.0); MEAN CORPUSCULAR VOLUME 74 fL (80-100); MONOCYTES # (AUTO) 1.5 K/uL (0.1-1.0); MONOCYTES % (AUTO) 9.6 % (2.0-9.0); NEUTROPHILS # (AUTO) 10.4 K/uL (1.8-7.7); NEUTROPHILS % (AUTO) 68.1 % (40.0-70.0); PLATELET COUNT (AUTO) 363 K/uL (150-450); RED BLOOD CELL COUNT(AUTO) 5.37 MIL/uL (4.50-5.90); RED CELL DISTRIBUTION WIDTH 19.6 % (11.5-14.5)
[2023-04-28 07:27] VITALS: BP 115/67; PULSE 99; RESP 20; TEMP 98.6
[2023-04-28 07:29] LABS: ALANINE AMINOTRANSFERASE 190 U/L (12-78); ALBUMIN 2.8 g/dL (3.4-5.0); ANION GAP 11 mmol/L (8-16); ASPARTATE AMINOTRANSFERASE 115 U/L (15-37); CALCIUM, TOTAL 9.4 mg/dL (8.8-10.5); CARBON DIOXIDE 26 mmol/L (22-29); CHLORIDE 99 mmol/L (98-107); CREATININE 0.64 mg/dL (0.60-1.30); GLOMERULAR FILTR. RATE CALC > 60 mL/min (>60); GLUCOSE,RANDOM 102 mg/dL (70-110); POTASSIUM 4.2 mmol/L (3.5-5.1); SODIUM SERUM 136 mmol/L (136-145)
[2023-04-28 08:17] LABS: ALKALINE PHOSPHATASE 162 U/L (46-116); BILIRUBIN,TOTAL 0.3 mg/dL (0.1-1.0); TOTAL PROTEIN, SERUM 8.7 g/dL (6.4-8.2)
[2023-04-28] MEDS: RIFAMPIN 300 MG CAPSULE PO SCH (08:24)
[2023-04-28] MEDS: PYRIDOXINE HCL 50 MG TABLET PO SCH (08:24)
[2023-04-28] MEDS: ETHAMBUTOL HCL 100 MG TABLET PO SCH (08:24)
[2023-04-28] MEDS: HEPARIN SODIUM,PORCINE 5,000 UNITS/ML VIAL SQ SCH ×3 (08:24→23:17)
[2023-04-28] MEDS: PANTOPRAZOLE SODIUM 40 MG/VIAL IVP SCH (08:24)
[2023-04-28] MEDS: ISONIAZID 300 MG TABLET PO SCH (08:25)
[2023-04-28] MEDS: ETHAMBUTOL HCL 400 MG TABLET PO SCH (08:25)
[2023-04-28] MEDS: DOCUSATE SODIUM 100 MG CAPSULE PO SCH ×2 (08:25→20:39)
[2023-04-28] MEDS: PYRAZINAMIDE 500 MG TABLET PO SCH (08:26)
[2023-04-28 15:56] VITALS: BP 110/67; PULSE 82; RESP 20; TEMP 98.5
[2023-04-28 20:00] VITALS: BP 118/70; PULSE 79; RESP 18; TEMP 99
[2023-04-29 04:56] VITALS: BP 117/67; PULSE 96; RESP 18; TEMP 99
[2023-04-29 07:36] VITALS: BP 102/68; PULSE 96; RESP 20; TEMP 98.7
[2023-04-29 07:41] LABS: BASOPHILS % (AUTO) 0.5 % (0.0-2.0); EOSINOPHILS % (AUTO) 2.6 % (1.0-6.0); HEMATOCRIT 40.9 % (41-53); HEMOGLOBIN 12.7 g/dL (13.5-17.5); LYMPHOCYTES # (AUTO) 2.5 K/uL (1.0-4.8); MEAN CORPUSCULAR HEMOGLOBIN 23.2 pg (26.0-34.0); MEAN CORPUSCULAR HGB CONC 31.2 G/dL (31.0-37.0); MEAN CORPUSCULAR VOLUME 75 fL (80-100); MONOCYTES # (AUTO) 1.6 K/uL (0.1-1.0); MONOCYTES % (AUTO) 10.1 % (2.0-9.0); NEUTROPHILS # (AUTO) 10.8 K/uL (1.8-7.7); NEUTROPHILS % (AUTO) 70.8 % (40.0-70.0); PLATELET COUNT (AUTO) 408 K/uL (150-450); RED BLOOD CELL COUNT(AUTO) 5.49 MIL/uL (4.50-5.90); RED CELL DISTRIBUTION WIDTH 19.5 % (11.5-14.5)
[2023-04-29] MEDS: HEPARIN SODIUM,PORCINE 5,000 UNITS/ML VIAL SQ SCH ×4 (08:00→23:26)
[2023-04-29] MEDS: ISONIAZID 300 MG TABLET PO SCH (08:25)
[2023-04-29] MEDS: PYRAZINAMIDE 500 MG TABLET PO SCH (08:26)
[2023-04-29] MEDS: ETHAMBUTOL HCL 400 MG TABLET PO SCH (08:27)
[2023-04-29] MEDS: ETHAMBUTOL HCL 100 MG TABLET PO SCH (08:27)
[2023-04-29] MEDS: DOCUSATE SODIUM 100 MG CAPSULE PO SCH ×2 (08:28→21:00)
[2023-04-29] MEDS: RIFAMPIN 300 MG CAPSULE PO SCH (08:28)
[2023-04-29] MEDS: PANTOPRAZOLE SODIUM 40 MG/VIAL IVP SCH (08:29)
[2023-04-29 08:36] LABS: ALANINE AMINOTRANSFERASE 201 U/L (12-78); ALBUMIN 2.6 g/dL (3.4-5.0); ALKALINE PHOSPHATASE 158 U/L (46-116); ANION GAP 9 mmol/L (8-16); ASPARTATE AMINOTRANSFERASE 103 U/L (15-37); BILIRUBIN,TOTAL 0.3 mg/dL (0.1-1.0); CALCIUM, TOTAL 9.6 mg/dL (8.8-10.5); CARBON DIOXIDE 27 mmol/L (22-29); CHLORIDE 99 mmol/L (98-107); CREATININE 0.72 mg/dL (0.60-1.30); GLOMERULAR FILTR. RATE CALC > 60 mL/min (>60); GLUCOSE,RANDOM 99 mg/dL (70-110); SODIUM SERUM 135 mmol/L (136-145); TOTAL PROTEIN, SERUM 8.4 g/dL (6.4-8.2)
[2023-04-29] MEDS: PYRIDOXINE HCL 50 MG TABLET PO SCH (09:23)
[2023-04-29 15:35] VITALS: BP 127/70; PULSE 90; RESP 20; TEMP 98.2
[2023-04-29 20:01] VITALS: BP 125/81; PULSE 89; RESP 18; TEMP 98.6
[2023-04-29] MEDS: ACETAMINOPHEN 325 MG TABLET PO PRN (21:00)
[2023-04-30] VITALS (8 sets, daily range): BP systolic 104–125; BP diastolic 54–76; PULSE 88–108; RESP 18–24; TEMP 98.8–100.7; O2SAT 98–99
[2023-04-30 06:28] LABS: BASOPHILS % (AUTO) 0.3 % (0.0-2.0); EOSINOPHILS % (AUTO) 2.4 % (1.0-6.0); HEMATOCRIT 39.4 % (41-53); HEMOGLOBIN 12.4 g/dL (13.5-17.5); LYMPHOCYTES # (AUTO) 2.6 K/uL (1.0-4.8); LYMPHOCYTES % (AUTO) 17.7 % (22.0-44.0); MEAN CORPUSCULAR HEMOGLOBIN 23.3 pg (26.0-34.0); MEAN CORPUSCULAR HGB CONC 31.4 G/dL (31.0-37.0); MEAN CORPUSCULAR VOLUME 74 fL (80-100); MONOCYTES # (AUTO) 1.4 K/uL (0.1-1.0); MONOCYTES % (AUTO) 9.7 % (2.0-9.0); NEUTROPHILS # (AUTO) 10.2 K/uL (1.8-7.7); NEUTROPHILS % (AUTO) 69.9 % (40.0-70.0); PLATELET COUNT (AUTO) 400 K/uL (150-450); RED BLOOD CELL COUNT(AUTO) 5.31 MIL/uL (4.50-5.90)
[2023-04-30 06:57] LABS: ALANINE AMINOTRANSFERASE 192 U/L (12-78); ALBUMIN 2.6 g/dL (3.4-5.0); ALKALINE PHOSPHATASE 163 U/L (46-116); ANION GAP 8 mmol/L (8-16); ASPARTATE AMINOTRANSFERASE 85 U/L (15-37); BILIRUBIN,TOTAL 0.3 mg/dL (0.1-1.0); CALCIUM, TOTAL 8.9 mg/dL (8.8-10.5); CARBON DIOXIDE 25 mmol/L (22-29); CHLORIDE 100 mmol/L (98-107); CREATININE 0.61 mg/dL (0.60-1.30); GLOMERULAR FILTR. RATE CALC > 60 mL/min (>60); GLUCOSE,RANDOM 104 mg/dL (70-110); POTASSIUM 3.8 mmol/L (3.5-5.1); SODIUM SERUM 133 mmol/L (136-145); TOTAL PROTEIN, SERUM 8.4 g/dL (6.4-8.2)
[2023-04-30] MEDS ORDERED: SODIUM CHLORIDE 3% 15 ML NEB SOLUTION NEB ONE (07:42)
[2023-04-30] MEDS: HEPARIN SODIUM,PORCINE 5,000 UNITS/ML VIAL SQ SCH ×3 (08:00→23:25)
[2023-04-30] MEDS: PYRAZINAMIDE 500 MG TABLET PO SCH (08:54)
[2023-04-30] MEDS: PANTOPRAZOLE SODIUM 40 MG/VIAL IVP SCH (08:55)
[2023-04-30] MEDS: ETHAMBUTOL HCL 100 MG TABLET PO SCH (08:55)
[2023-04-30] MEDS: ETHAMBUTOL HCL 400 MG TABLET PO SCH (08:55)
[2023-04-30] MEDS: RIFAMPIN 300 MG CAPSULE PO SCH (08:55)
[2023-04-30] MEDS: ISONIAZID 300 MG TABLET PO SCH (08:56)
[2023-04-30] MEDS: DOCUSATE SODIUM 100 MG CAPSULE PO SCH ×2 (08:56→20:42)
[2023-04-30] MEDS: PYRIDOXINE HCL 50 MG TABLET PO SCH (09:45)
[2023-04-30] MEDS: ACETAMINOPHEN 325 MG TABLET PO PRN (20:43)
[2023-05-01 05:26] VITALS: BP 112/66; PULSE 102; RESP 18; TEMP 99.7
[2023-05-01] MEDS: ACETAMINOPHEN 325 MG TABLET PO PRN ×2 (05:35→20:16)
[2023-05-01 06:55] LABS: BASOPHILS % (AUTO) 0.5 % (0.0-2.0); EOSINOPHILS % (AUTO) 2.1 % (1.0-6.0); HEMATOCRIT 37.8 % (41-53); HEMOGLOBIN 12.1 g/dL (13.5-17.5); LYMPHOCYTES # (AUTO) 2.1 K/uL (1.0-4.8); MEAN CORPUSCULAR HEMOGLOBIN 23.9 pg (26.0-34.0); MEAN CORPUSCULAR HGB CONC 32.1 G/dL (31.0-37.0); MEAN CORPUSCULAR VOLUME 74 fL (80-100); MONOCYTES # (AUTO) 1.6 K/uL (0.1-1.0); MONOCYTES % (AUTO) 10.4 % (2.0-9.0); PLATELET COUNT (AUTO) 384 K/uL (150-450); RED BLOOD CELL COUNT(AUTO) 5.09 MIL/uL (4.50-5.90); RED CELL DISTRIBUTION WIDTH 18.9 % (11.5-14.5)
[2023-05-01 07:23] LABS: ALANINE AMINOTRANSFERASE 177 U/L (12-78); ALBUMIN 2.6 g/dL (3.4-5.0); ALKALINE PHOSPHATASE 159 U/L (46-116); ANION GAP 9 mmol/L (8-16); ASPARTATE AMINOTRANSFERASE 82 U/L (15-37); BILIRUBIN,TOTAL 0.4 mg/dL (0.1-1.0); CALCIUM, TOTAL 9.3 mg/dL (8.8-10.5); CARBON DIOXIDE 28 mmol/L (22-29); CHLORIDE 98 mmol/L (98-107); CREATININE 0.68 mg/dL (0.60-1.30); GLOMERULAR FILTR. RATE CALC > 60 mL/min (>60); GLUCOSE,RANDOM 106 mg/dL (70-110); POTASSIUM 3.7 mmol/L (3.5-5.1); SODIUM SERUM 135 mmol/L (136-145); TOTAL PROTEIN, SERUM 8.1 g/dL (6.4-8.2)
[2023-05-01 07:30] VITALS: BP 109/57; PULSE 80; RESP 19; TEMP 98.3
[2023-05-01] MEDS: HEPARIN SODIUM,PORCINE 5,000 UNITS/ML VIAL SQ SCH ×3 (08:00→23:49)
[2023-05-01] MEDS: PYRIDOXINE HCL 50 MG TABLET PO SCH (08:58)
[2023-05-01] MEDS: DOCUSATE SODIUM 100 MG CAPSULE PO SCH ×2 (08:58→20:08)
[2023-05-01] MEDS: ETHAMBUTOL HCL 400 MG TABLET PO SCH (08:59)
[2023-05-01] MEDS: ISONIAZID 300 MG TABLET PO SCH (08:59)
[2023-05-01] MEDS: RIFAMPIN 300 MG CAPSULE PO SCH (09:00)
[2023-05-01] MEDS: ETHAMBUTOL HCL 100 MG TABLET PO SCH (09:00)
[2023-05-01] MEDS: PANTOPRAZOLE SODIUM 40 MG/VIAL IVP SCH (09:01)
[2023-05-01] MEDS: PYRAZINAMIDE 500 MG TABLET PO SCH (09:01)
[2023-05-01 15:00] VITALS: BP 129/76; PULSE 117; RESP 19; TEMP 99.4
[2023-05-01 20:23] VITALS: BP 117/71; PULSE 89; RESP 20; TEMP 100
[2023-05-01 23:52] VITALS: TEMP 99
[2023-05-02 04:59] VITALS: BP 109/64; PULSE 98; RESP 20; TEMP 100.3
[2023-05-02] MEDS: ACETAMINOPHEN 325 MG TABLET PO PRN (05:07)
[2023-05-02 07:30] VITALS: BP 112/64; PULSE 98; RESP 20; TEMP 99.1
[2023-05-02] MEDS: HEPARIN SODIUM,PORCINE 5,000 UNITS/ML VIAL SQ SCH ×3 (08:00→16:01)
[2023-05-02] MEDS: ISONIAZID 300 MG TABLET PO SCH (09:04)
[2023-05-02] MEDS: PANTOPRAZOLE SODIUM 40 MG/VIAL IVP SCH (09:04)
[2023-05-02] MEDS: PYRIDOXINE HCL 50 MG TABLET PO SCH (09:05)
[2023-05-02] MEDS: PYRAZINAMIDE 500 MG TABLET PO SCH (09:06)
[2023-05-02] MEDS: DOCUSATE SODIUM 100 MG CAPSULE PO SCH ×2 (09:06→19:58)
[2023-05-02] MEDS: RIFAMPIN 300 MG CAPSULE PO SCH (09:06)
[2023-05-02] MEDS: ETHAMBUTOL HCL 400 MG TABLET PO SCH (09:06)
[2023-05-02] MEDS: ETHAMBUTOL HCL 100 MG TABLET PO SCH (09:30)
[2023-05-02 15:38] VITALS: BP 131/73; PULSE 103; RESP 20; TEMP 98.3
[2023-05-02 20:04] VITALS: BP 121/79; PULSE 101; RESP 20; TEMP 100
[2023-05-02 22:41] VITALS: TEMP 99
[2023-05-03] MEDS: ACETAMINOPHEN 325 MG TABLET PO PRN ×3 (00:49→21:02)
[2023-05-03 00:52] VITALS: TEMP 100.3
[2023-05-03 05:07] VITALS: BP 126/69; PULSE 99; RESP 18; TEMP 99.9
[2023-05-03 07:02] LABS: BASOPHILS % (AUTO) 0.5 % (0.0-2.0); EOSINOPHILS % (AUTO) 2.8 % (1.0-6.0); HEMATOCRIT 37.5 % (41-53); HEMOGLOBIN 12.1 g/dL (13.5-17.5); LYMPHOCYTES # (AUTO) 2.1 K/uL (1.0-4.8); LYMPHOCYTES % (AUTO) 16.4 % (22.0-44.0); MEAN CORPUSCULAR HGB CONC 32.2 G/dL (31.0-37.0); MEAN CORPUSCULAR VOLUME 74 fL (80-100); MONOCYTES # (AUTO) 1.4 K/uL (0.1-1.0); MONOCYTES % (AUTO) 11.2 % (2.0-9.0); NEUTROPHILS # (AUTO) 8.8 K/uL (1.8-7.7); NEUTROPHILS % (AUTO) 69.1 % (40.0-70.0); PLATELET COUNT (AUTO) 462 K/uL (150-450); RED BLOOD CELL COUNT(AUTO) 5.04 MIL/uL (4.50-5.90)
[2023-05-03 07:16] LABS: ALANINE AMINOTRANSFERASE 150 U/L (12-78); ALBUMIN 2.6 g/dL (3.4-5.0); ALKALINE PHOSPHATASE 164 U/L (46-116); ANION GAP 5 mmol/L (8-16); ASPARTATE AMINOTRANSFERASE 49 U/L (15-37); BILIRUBIN,TOTAL 0.3 mg/dL (0.1-1.0); CALCIUM, TOTAL 9.2 mg/dL (8.8-10.5); CARBON DIOXIDE 29 mmol/L (22-29); CHLORIDE 100 mmol/L (98-107); CREATININE 0.73 mg/dL (0.60-1.30); GLOMERULAR FILTR. RATE CALC > 60 mL/min (>60); GLUCOSE,RANDOM 98 mg/dL (70-110); POTASSIUM 3.9 mmol/L (3.5-5.1); SODIUM SERUM 134 mmol/L (136-145); TOTAL PROTEIN, SERUM 8.4 g/dL (6.4-8.2)
[2023-05-03] MEDS: HEPARIN SODIUM,PORCINE 5,000 UNITS/ML VIAL SQ SCH ×3 (08:00→16:00)
[2023-05-03 08:04] VITALS: BP 111/66; PULSE 86; RESP 20; TEMP 99.2
[2023-05-03] MEDS: PYRAZINAMIDE 500 MG TABLET PO SCH (09:31)
[2023-05-03] MEDS: ETHAMBUTOL HCL 100 MG TABLET PO SCH (09:31)
[2023-05-03] MEDS: DOCUSATE SODIUM 100 MG CAPSULE PO SCH ×2 (09:32→20:47)
[2023-05-03] MEDS: PYRIDOXINE HCL 50 MG TABLET PO SCH (09:32)
[2023-05-03] MEDS: ETHAMBUTOL HCL 400 MG TABLET PO SCH (09:32)
[2023-05-03] MEDS: RIFAMPIN 300 MG CAPSULE PO SCH (09:32)
[2023-05-03] MEDS: ISONIAZID 300 MG TABLET PO SCH (09:33)
[2023-05-03] MEDS: PANTOPRAZOLE SODIUM 40 MG/VIAL IVP SCH (09:36)
[2023-05-03 15:06] VITALS: BP 113/74; PULSE 89; RESP 18; TEMP 99
[2023-05-03 19:47] VITALS: BP 123/70; PULSE 90; RESP 20; TEMP 99.6
[2023-05-03 21:02] VITALS: BP 131/76; PULSE 89; RESP 18; TEMP 98.4
[2023-05-04 05:20] VITALS: BP 114/60; PULSE 95; RESP 20; TEMP 99.1
[2023-05-04 07:59] VITALS: BP 113/72; PULSE 91; RESP 18; TEMP 99.2
[2023-05-04] MEDS: HEPARIN SODIUM,PORCINE 5,000 UNITS/ML VIAL SQ SCH ×4 (08:00→16:00)
[2023-05-04] MEDS: PANTOPRAZOLE SODIUM 40 MG/VIAL IVP SCH (08:34)
[2023-05-04] MEDS: ISONIAZID 300 MG TABLET PO SCH (08:34)
[2023-05-04] MEDS: RIFAMPIN 300 MG CAPSULE PO SCH (08:35)
[2023-05-04] MEDS: ETHAMBUTOL HCL 100 MG TABLET PO SCH (08:35)
[2023-05-04] MEDS: ETHAMBUTOL HCL 400 MG TABLET PO SCH (08:36)
[2023-05-04] MEDS: DOCUSATE SODIUM 100 MG CAPSULE PO SCH ×2 (08:37→20:25)
[2023-05-04] MEDS: PYRAZINAMIDE 500 MG TABLET PO SCH (08:37)
[2023-05-04] MEDS: PYRIDOXINE HCL 50 MG TABLET PO SCH (08:37)
[2023-05-04 20:27] VITALS: BP 111/70; PULSE 94; RESP 18; TEMP 99.2
[2023-05-05 00:07] VITALS: TEMP 99.4
[2023-05-05] MEDS: HEPARIN SODIUM,PORCINE 5,000 UNITS/ML VIAL SQ SCH ×5 (00:09→23:52)
[2023-05-05] MEDS: ACETAMINOPHEN 325 MG TABLET PO PRN ×2 (00:11→23:52)
[2023-05-05 05:35] VITALS: BP 122/72; PULSE 88; RESP 18; TEMP 98.2
[2023-05-05 07:37] VITALS: BP 128/74; PULSE 84; RESP 18; TEMP 98.4
[2023-05-05] MEDS: ETHAMBUTOL HCL 400 MG TABLET PO SCH (09:27)
[2023-05-05] MEDS: PYRAZINAMIDE 500 MG TABLET PO SCH (09:27)
[2023-05-05] MEDS: DOCUSATE SODIUM 100 MG CAPSULE PO SCH ×2 (09:28→20:36)
[2023-05-05] MEDS: ETHAMBUTOL HCL 100 MG TABLET PO SCH (09:28)
[2023-05-05] MEDS: ISONIAZID 300 MG TABLET PO SCH (09:28)
[2023-05-05] MEDS: RIFAMPIN 300 MG CAPSULE PO SCH (09:28)
[2023-05-05] MEDS: PANTOPRAZOLE SODIUM 40 MG/VIAL IVP SCH (09:28)
[2023-05-05] MEDS: PYRIDOXINE HCL 50 MG TABLET PO SCH (09:36)
[2023-05-05 14:57] VITALS: BP 134/76; PULSE 86; RESP 20; TEMP 99.2
[2023-05-05 20:42] VITALS: BP 126/70; PULSE 69; RESP 18; TEMP 99.3
[2023-05-06 05:27] VITALS: BP 123/65; PULSE 72; RESP 20; TEMP 97.9
[2023-05-06 06:39] LABS: BASOPHILS % (AUTO) 0.8 % (0.0-2.0); EOSINOPHILS % (AUTO) 3.3 % (1.0-6.0); HEMATOCRIT 40.3 % (41-53); HEMOGLOBIN 13.1 g/dL (13.5-17.5); LYMPHOCYTES # (AUTO) 2.4 K/uL (1.0-4.8); MEAN CORPUSCULAR HEMOGLOBIN 24.3 pg (26.0-34.0); MEAN CORPUSCULAR HGB CONC 32.6 G/dL (31.0-37.0); MEAN CORPUSCULAR VOLUME 75 fL (80-100); MONOCYTES # (AUTO) 1.4 K/uL (0.1-1.0); MONOCYTES % (AUTO) 12.9 % (2.0-9.0); NEUTROPHILS # (AUTO) 6.7 K/uL (1.8-7.7); PLATELET COUNT (AUTO) 474 K/uL (150-450); RED BLOOD CELL COUNT(AUTO) 5.41 MIL/uL (4.50-5.90); RED CELL DISTRIBUTION WIDTH 18.8 % (11.5-14.5)
[2023-05-06 06:58] LABS: ALANINE AMINOTRANSFERASE 91 U/L (12-78); ALBUMIN 2.6 g/dL (3.4-5.0); ALKALINE PHOSPHATASE 164 U/L (46-116); ANION GAP 8 mmol/L (8-16); ASPARTATE AMINOTRANSFERASE 31 U/L (15-37); BILIRUBIN,TOTAL 0.2 mg/dL (0.1-1.0); CALCIUM, TOTAL 9.4 mg/dL (8.8-10.5); CARBON DIOXIDE 29 mmol/L (22-29); CHLORIDE 102 mmol/L (98-107); CREATININE 0.75 mg/dL (0.60-1.30); GLOMERULAR FILTR. RATE CALC > 60 mL/min (>60); GLUCOSE,RANDOM 95 mg/dL (70-110); POTASSIUM 4.6 mmol/L (3.5-5.1); SODIUM SERUM 139 mmol/L (136-145); TOTAL PROTEIN, SERUM 8.3 g/dL (6.4-8.2)
[2023-05-06 07:20] VITALS: BP 128/68; PULSE 78; RESP 20; TEMP 98.4
[2023-05-06] MEDS: HEPARIN SODIUM,PORCINE 5,000 UNITS/ML VIAL SQ SCH ×3 (08:00→23:22)
[2023-05-06] MEDS: ETHAMBUTOL HCL 100 MG TABLET PO SCH (08:49)
[2023-05-06] MEDS: PYRAZINAMIDE 500 MG TABLET PO SCH (08:49)
[2023-05-06] MEDS: RIFAMPIN 300 MG CAPSULE PO SCH (08:50)
[2023-05-06] MEDS: DOCUSATE SODIUM 100 MG CAPSULE PO SCH ×2 (08:51→21:41)
[2023-05-06] MEDS: ISONIAZID 300 MG TABLET PO SCH (08:52)
[2023-05-06] MEDS: ETHAMBUTOL HCL 400 MG TABLET PO SCH (08:52)
[2023-05-06] MEDS: PANTOPRAZOLE SODIUM 40 MG/VIAL IVP SCH (08:54)
[2023-05-06] MEDS: PYRIDOXINE HCL 50 MG TABLET PO SCH (09:11)
[2023-05-06 14:57] VITALS: BP 124/72; PULSE 68; RESP 18; TEMP 97.9
[2023-05-06 19:43] VITALS: BP 127/74; PULSE 81; RESP 20; TEMP 99.1
[2023-05-07] VITALS (7 sets, daily range): BP systolic 109–122; BP diastolic 65–74; PULSE 88–95; RESP 18–20; TEMP 98.2–99; O2SAT 99–100
[2023-05-07] MEDS: HEPARIN SODIUM,PORCINE 5,000 UNITS/ML VIAL SQ SCH ×3 (08:00→23:59)
[2023-05-07] MEDS ORDERED: SODIUM CHLORIDE 3% 15 ML NEB SOLUTION NEB ONE (08:25)
[2023-05-07] MEDS: RIFAMPIN 300 MG CAPSULE PO SCH (08:47)
[2023-05-07] MEDS: ETHAMBUTOL HCL 400 MG TABLET PO SCH (08:48)
[2023-05-07] MEDS: PYRAZINAMIDE 500 MG TABLET PO SCH (08:49)
[2023-05-07] MEDS: ETHAMBUTOL HCL 100 MG TABLET PO SCH (08:49)
[2023-05-07] MEDS: PYRIDOXINE HCL 50 MG TABLET PO SCH (08:50)
[2023-05-07] MEDS: ISONIAZID 300 MG TABLET PO SCH (08:50)
[2023-05-07] MEDS: DOCUSATE SODIUM 100 MG CAPSULE PO SCH ×2 (08:50→21:19)
[2023-05-07] MEDS: PANTOPRAZOLE SODIUM 40 MG/VIAL IVP SCH (08:51)
[2023-05-08 07:30] VITALS: BP 116/86; PULSE 84; RESP 20; TEMP 98.8
[2023-05-08] MEDS: HEPARIN SODIUM,PORCINE 5,000 UNITS/ML VIAL SQ SCH ×2 (08:00→16:00)
[2023-05-08] MEDS: RIFAMPIN 300 MG CAPSULE PO SCH (09:10)
[2023-05-08] MEDS: ISONIAZID 300 MG TABLET PO SCH (09:10)
[2023-05-08] MEDS: DOCUSATE SODIUM 100 MG CAPSULE PO SCH ×2 (09:10→20:28)
[2023-05-08] MEDS: PANTOPRAZOLE SODIUM 40 MG/VIAL IVP SCH (09:10)
[2023-05-08] MEDS: PYRIDOXINE HCL 50 MG TABLET PO SCH (09:11)
[2023-05-08] MEDS: PYRAZINAMIDE 500 MG TABLET PO SCH (09:11)
[2023-05-08] MEDS: ETHAMBUTOL HCL 400 MG TABLET PO SCH (09:11)
[2023-05-08] MEDS: ETHAMBUTOL HCL 100 MG TABLET PO SCH (09:11)
[2023-05-08] MEDS ORDERED: SODIUM CHLORIDE 3% 15 ML NEB SOLUTION NEB ONE (20:02)
[2023-05-08 20:44] VITALS: BP 121/73; PULSE 96; RESP 20; TEMP 99.2
[2023-05-09] MEDS: HEPARIN SODIUM,PORCINE 5,000 UNITS/ML VIAL SQ SCH ×4 (00:02→23:23)
[2023-05-09 04:18] VITALS: BP 112/78; PULSE 87; RESP 18; TEMP 98.1
[2023-05-09] MEDS ORDERED: SODIUM CHLORIDE 3% 15 ML NEB SOLUTION NEB ONE (05:34)
[2023-05-09 08:14] VITALS: BP 120/68; PULSE 89; RESP 18; TEMP 98.3
[2023-05-09] MEDS: RIFAMPIN 300 MG CAPSULE PO SCH (09:09)
[2023-05-09] MEDS: ETHAMBUTOL HCL 100 MG TABLET PO SCH (09:09)
[2023-05-09] MEDS: PYRAZINAMIDE 500 MG TABLET PO SCH (09:09)
[2023-05-09] MEDS: ETHAMBUTOL HCL 400 MG TABLET PO SCH (09:11)
[2023-05-09] MEDS: DOCUSATE SODIUM 100 MG CAPSULE PO SCH ×2 (09:11→20:34)
[2023-05-09] MEDS: PYRIDOXINE HCL 50 MG TABLET PO SCH (09:12)
[2023-05-09] MEDS: PANTOPRAZOLE SODIUM 40 MG/VIAL IVP SCH (09:12)
[2023-05-09] MEDS: ISONIAZID 300 MG TABLET PO SCH (09:12)
[2023-05-09 16:07] VITALS: BP 122/77; PULSE 89; RESP 20; TEMP 98.9
[2023-05-09 20:13] VITALS: BP 116/73; PULSE 87; RESP 20; TEMP 99.3
[2023-05-10 04:56] VITALS: BP 112/61; PULSE 87; RESP 20; TEMP 99
[2023-05-10 07:45] VITALS: BP 112/68; PULSE 80; RESP 20; TEMP 98.7
[2023-05-10] MEDS: PYRAZINAMIDE 500 MG TABLET PO SCH (08:14)
[2023-05-10] MEDS: RIFAMPIN 300 MG CAPSULE PO SCH (08:14)
[2023-05-10] MEDS: ETHAMBUTOL HCL 100 MG TABLET PO SCH (08:14)
[2023-05-10] MEDS: ETHAMBUTOL HCL 400 MG TABLET PO SCH (08:14)
[2023-05-10] MEDS: HEPARIN SODIUM,PORCINE 5,000 UNITS/ML VIAL SQ SCH ×3 (08:15→22:49)
[2023-05-10] MEDS: ISONIAZID 300 MG TABLET PO SCH (08:15)
[2023-05-10] MEDS: PYRIDOXINE HCL 50 MG TABLET PO SCH (08:15)
[2023-05-10] MEDS: DOCUSATE SODIUM 100 MG CAPSULE PO SCH ×2 (08:15→21:13)
[2023-05-10] MEDS: PANTOPRAZOLE SODIUM 40 MG/VIAL IVP SCH (08:15)
[2023-05-10 15:26] VITALS: BP 122/77; PULSE 85; RESP 20; TEMP 98.4
[2023-05-10 19:40] VITALS: BP 118/68; PULSE 88; RESP 20; TEMP 99.2
[2023-05-11 04:10] VITALS: BP 110/64; PULSE 82; RESP 18; TEMP 98.7
[2023-05-11] MEDS: HEPARIN SODIUM,PORCINE 5,000 UNITS/ML VIAL SQ SCH ×3 (08:00→23:26)
[2023-05-11] MEDS: PANTOPRAZOLE SODIUM 40 MG/VIAL IVP SCH (08:15)
[2023-05-11 08:18] VITALS: BP 112/65; PULSE 80; RESP 20; TEMP 98.6
[2023-05-11] MEDS: ETHAMBUTOL HCL 100 MG TABLET PO SCH (08:33)
[2023-05-11] MEDS: DOCUSATE SODIUM 100 MG CAPSULE PO SCH ×2 (08:34→21:11)
[2023-05-11] MEDS: ETHAMBUTOL HCL 400 MG TABLET PO SCH (08:34)
[2023-05-11] MEDS: PYRIDOXINE HCL 50 MG TABLET PO SCH (08:34)
[2023-05-11] MEDS: PYRAZINAMIDE 500 MG TABLET PO SCH (08:34)
[2023-05-11] MEDS: RIFAMPIN 300 MG CAPSULE PO SCH (08:35)
[2023-05-11] MEDS: ISONIAZID 300 MG TABLET PO SCH (08:35)
[2023-05-11 16:34] VITALS: BP 117/74; PULSE 79; RESP 20; TEMP 98.7
[2023-05-11 20:04] VITALS: BP 117/70; PULSE 55; RESP 20; TEMP 98.1
[2023-05-12 04:22] VITALS: BP 110/64; PULSE 84; RESP 20; TEMP 98.1
[2023-05-12 07:48] VITALS: BP 111/65; PULSE 88; RESP 20; TEMP 98.7
[2023-05-12] MEDS: HEPARIN SODIUM,PORCINE 5,000 UNITS/ML VIAL SQ SCH ×2 (08:00→15:49)
[2023-05-12] MEDS: PYRIDOXINE HCL 50 MG TABLET PO SCH (08:24)
[2023-05-12] MEDS: ETHAMBUTOL HCL 100 MG TABLET PO SCH (08:24)
[2023-05-12] MEDS: DOCUSATE SODIUM 100 MG CAPSULE PO SCH ×2 (08:24→20:00)
[2023-05-12] MEDS: ETHAMBUTOL HCL 400 MG TABLET PO SCH (08:24)
[2023-05-12] MEDS: PYRAZINAMIDE 500 MG TABLET PO SCH (08:24)
[2023-05-12] MEDS: PANTOPRAZOLE SODIUM 40 MG DR TABLET PO SCH (08:24)
[2023-05-12] MEDS: ISONIAZID 300 MG TABLET PO SCH (08:25)
[2023-05-12] MEDS: RIFAMPIN 300 MG CAPSULE PO SCH (08:25)
[2023-05-12 15:05] VITALS: BP 117/70; PULSE 83; RESP 20; TEMP 98.8
[2023-05-12 20:09] VITALS: BP 127/69; PULSE 99; RESP 20; TEMP 98.2
[2023-05-13] MEDS: HEPARIN SODIUM,PORCINE 5,000 UNITS/ML VIAL SQ SCH ×4 (00:14→23:09)
[2023-05-13 05:03] VITALS: BP 102/67; PULSE 87; RESP 20; TEMP 98.2
[2023-05-13 07:48] LABS: BASOPHILS % (AUTO) 0.8 % (0.0-2.0); EOSINOPHILS % (AUTO) 2.9 % (1.0-6.0); HEMATOCRIT 40.7 % (41-53); HEMOGLOBIN 13.3 g/dL (13.5-17.5); LYMPHOCYTES # (AUTO) 2.5 K/uL (1.0-4.8); LYMPHOCYTES % (AUTO) 21.9 % (22.0-44.0); MEAN CORPUSCULAR HGB CONC 32.7 G/dL (31.0-37.0); MEAN CORPUSCULAR VOLUME 73 fL (80-100); MONOCYTES % (AUTO) 8.9 % (2.0-9.0); NEUTROPHILS # (AUTO) 7.4 K/uL (1.8-7.7); NEUTROPHILS % (AUTO) 65.5 % (40.0-70.0); PLATELET COUNT (AUTO) 504 K/uL (150-450); RED BLOOD CELL COUNT(AUTO) 5.55 MIL/uL (4.50-5.90)
[2023-05-13 08:02] LABS: ALANINE AMINOTRANSFERASE 45 U/L (12-78); ALBUMIN 2.6 g/dL (3.4-5.0); ALKALINE PHOSPHATASE 149 U/L (46-116); ANION GAP 9 mmol/L (8-16); ASPARTATE AMINOTRANSFERASE 25 U/L (15-37); BILIRUBIN,TOTAL 0.2 mg/dL (0.1-1.0); CALCIUM, TOTAL 9.1 mg/dL (8.8-10.5); CARBON DIOXIDE 27 mmol/L (22-29); CHLORIDE 102 mmol/L (98-107); GLOMERULAR FILTR. RATE CALC > 60 mL/min (>60); GLUCOSE,RANDOM 88 mg/dL (70-110); POTASSIUM 3.9 mmol/L (3.5-5.1); SODIUM SERUM 138 mmol/L (136-145); TOTAL PROTEIN, SERUM 8.1 g/dL (6.4-8.2)
[2023-05-13] MEDS: RIFAMPIN 300 MG CAPSULE PO SCH (08:05)
[2023-05-13] MEDS: PYRIDOXINE HCL 50 MG TABLET PO SCH (08:05)
[2023-05-13] MEDS: PANTOPRAZOLE SODIUM 40 MG DR TABLET PO SCH (08:05)
[2023-05-13] MEDS: PYRAZINAMIDE 500 MG TABLET PO SCH (08:05)
[2023-05-13] MEDS: ETHAMBUTOL HCL 100 MG TABLET PO SCH (08:05)
[2023-05-13] MEDS: ETHAMBUTOL HCL 400 MG TABLET PO SCH (08:05)
[2023-05-13] MEDS: DOCUSATE SODIUM 100 MG CAPSULE PO SCH ×2 (08:05→20:06)
[2023-05-13] MEDS: ISONIAZID 300 MG TABLET PO SCH (08:06)
[2023-05-13 20:02] VITALS: BP 112/66; PULSE 88; RESP 18; TEMP 99
[2023-05-14 05:04] VITALS: BP 108/64; PULSE 86; RESP 20; TEMP 98.9
[2023-05-14 07:34] VITALS: BP 110/76; PULSE 83; RESP 20; TEMP 98.2
[2023-05-14] MEDS: HEPARIN SODIUM,PORCINE 5,000 UNITS/ML VIAL SQ SCH ×3 (08:00→23:05)
[2023-05-14] MEDS: PYRAZINAMIDE 500 MG TABLET PO SCH (08:20)
[2023-05-14] MEDS: ETHAMBUTOL HCL 100 MG TABLET PO SCH (08:20)
[2023-05-14] MEDS: DOCUSATE SODIUM 100 MG CAPSULE PO SCH ×2 (08:20→19:48)
[2023-05-14] MEDS: RIFAMPIN 300 MG CAPSULE PO SCH (08:21)
[2023-05-14] MEDS: ETHAMBUTOL HCL 400 MG TABLET PO SCH (08:21)
[2023-05-14] MEDS: ISONIAZID 300 MG TABLET PO SCH (08:21)
[2023-05-14] MEDS: PYRIDOXINE HCL 50 MG TABLET PO SCH (08:23)
[2023-05-14] MEDS: PANTOPRAZOLE SODIUM 40 MG DR TABLET PO SCH (11:39)
[2023-05-14 15:16] VITALS: BP 111/59; PULSE 102; RESP 20; TEMP 98.5
[2023-05-14 19:27] VITALS: BP 105/70; PULSE 91; RESP 20; TEMP 99.2
[2023-05-15 04:08] VITALS: BP 105/62; PULSE 83; RESP 20; TEMP 98.3
[2023-05-15 07:26] VITALS: BP 108/64; PULSE 69; RESP 20; TEMP 98.1
[2023-05-15] MEDS: HEPARIN SODIUM,PORCINE 5,000 UNITS/ML VIAL SQ SCH ×2 (08:00→16:00)
[2023-05-15] MEDS: PYRAZINAMIDE 500 MG TABLET PO SCH (08:19)
[2023-05-15] MEDS: ETHAMBUTOL HCL 100 MG TABLET PO SCH (08:19)
[2023-05-15] MEDS: PYRIDOXINE HCL 50 MG TABLET PO SCH (08:20)
[2023-05-15] MEDS: ISONIAZID 300 MG TABLET PO SCH (08:20)
[2023-05-15] MEDS: DOCUSATE SODIUM 100 MG CAPSULE PO SCH ×2 (08:20→20:29)
[2023-05-15] MEDS: ETHAMBUTOL HCL 400 MG TABLET PO SCH (08:20)
[2023-05-15] MEDS: RIFAMPIN 300 MG CAPSULE PO SCH (08:20)
[2023-05-15] MEDS: PANTOPRAZOLE SODIUM 40 MG DR TABLET PO SCH (08:24)
[2023-05-15 15:47] VITALS: BP 106/65; PULSE 91; RESP 20; TEMP 98.3
[2023-05-15 20:21] VITALS: BP 117/70; PULSE 80; RESP 18; TEMP 98.4
[2023-05-16] MEDS: HEPARIN SODIUM,PORCINE 5,000 UNITS/ML VIAL SQ SCH ×3 (00:35→15:13)
[2023-05-16 07:24] VITALS: BP 115/76; PULSE 96; RESP 20; TEMP 98.9
[2023-05-16] MEDS: ISONIAZID 300 MG TABLET PO SCH (08:12)
[2023-05-16] MEDS: RIFAMPIN 300 MG CAPSULE PO SCH (08:12)
[2023-05-16] MEDS: DOCUSATE SODIUM 100 MG CAPSULE PO SCH ×2 (08:12→21:21)
[2023-05-16] MEDS: PYRAZINAMIDE 500 MG TABLET PO SCH (08:12)
[2023-05-16] MEDS: PANTOPRAZOLE SODIUM 40 MG DR TABLET PO SCH (08:12)
[2023-05-16] MEDS: ETHAMBUTOL HCL 400 MG TABLET PO SCH (08:12)
[2023-05-16] MEDS: ETHAMBUTOL HCL 100 MG TABLET PO SCH (08:12)
[2023-05-16] MEDS: PYRIDOXINE HCL 50 MG TABLET PO SCH (08:15)
[2023-05-16 15:43] VITALS: BP 130/87; PULSE 98; RESP 20; TEMP 97.8
[2023-05-16 19:40] VITALS: BP 110/69; PULSE 83; RESP 18; TEMP 98.4
[2023-05-17] MEDS: HEPARIN SODIUM,PORCINE 5,000 UNITS/ML VIAL SQ SCH ×4 (00:23→23:13)
[2023-05-17 04:10] VITALS: BP 104/63; PULSE 76; RESP 20; TEMP 98.4
[2023-05-17 08:05] VITALS: BP 113/72; PULSE 75; RESP 20; TEMP 98.2
[2023-05-17] MEDS: DOCUSATE SODIUM 100 MG CAPSULE PO SCH ×2 (08:13→20:16)
[2023-05-17] MEDS: PYRAZINAMIDE 500 MG TABLET PO SCH (08:13)
[2023-05-17] MEDS: ETHAMBUTOL HCL 100 MG TABLET PO SCH (08:13)
[2023-05-17] MEDS: RIFAMPIN 300 MG CAPSULE PO SCH (08:13)
[2023-05-17] MEDS: ISONIAZID 300 MG TABLET PO SCH (08:13)
[2023-05-17] MEDS: ETHAMBUTOL HCL 400 MG TABLET PO SCH (08:13)
[2023-05-17] MEDS: PYRIDOXINE HCL 50 MG TABLET PO SCH (08:14)
[2023-05-17] MEDS: PANTOPRAZOLE SODIUM 40 MG DR TABLET PO SCH (08:14)
[2023-05-17 20:31] VITALS: BP 123/73; PULSE 100; RESP 20; TEMP 98.9
[2023-05-18 04:22] VITALS: BP 102/57; PULSE 69; RESP 20; TEMP 98.9
[2023-05-18 07:55] VITALS: BP 121/75; PULSE 64; RESP 20; TEMP 98.2
[2023-05-18] MEDS: HEPARIN SODIUM,PORCINE 5,000 UNITS/ML VIAL SQ SCH ×3 (08:00→23:55)
[2023-05-18] MEDS: ETHAMBUTOL HCL 100 MG TABLET PO SCH (09:27)
[2023-05-18] MEDS: PYRAZINAMIDE 500 MG TABLET PO SCH (09:27)
[2023-05-18] MEDS: ETHAMBUTOL HCL 400 MG TABLET PO SCH (09:28)
[2023-05-18] MEDS: RIFAMPIN 300 MG CAPSULE PO SCH (09:28)
[2023-05-18] MEDS: PYRIDOXINE HCL 50 MG TABLET PO SCH (09:29)
[2023-05-18] MEDS: ISONIAZID 300 MG TABLET PO SCH (09:29)
[2023-05-18] MEDS: DOCUSATE SODIUM 100 MG CAPSULE PO SCH ×2 (09:30→20:01)
[2023-05-18] MEDS: PANTOPRAZOLE SODIUM 40 MG DR TABLET PO SCH (09:33)
[2023-05-18 16:04] VITALS: BP 118/78; PULSE 68; RESP 20; TEMP 98.4
[2023-05-18 19:55] VITALS: BP 128/98; PULSE 102; RESP 18; TEMP 98.4
[2023-05-19 04:30] VITALS: BP 110/70; PULSE 74; RESP 16; TEMP 97.9
[2023-05-19] MEDS: HEPARIN SODIUM,PORCINE 5,000 UNITS/ML VIAL SQ SCH ×4 (08:00→23:36)
[2023-05-19] MEDS: ETHAMBUTOL HCL 100 MG TABLET PO SCH (08:01)
[2023-05-19] MEDS: ISONIAZID 300 MG TABLET PO SCH (08:03)
[2023-05-19] MEDS: RIFAMPIN 300 MG CAPSULE PO SCH (08:03)
[2023-05-19] MEDS: PYRAZINAMIDE 500 MG TABLET PO SCH (08:03)
[2023-05-19] MEDS: ETHAMBUTOL HCL 400 MG TABLET PO SCH (08:03)
[2023-05-19] MEDS: DOCUSATE SODIUM 100 MG CAPSULE PO SCH ×2 (08:04→20:18)
[2023-05-19] MEDS: PANTOPRAZOLE SODIUM 40 MG DR TABLET PO SCH (08:04)
[2023-05-19] MEDS: PYRIDOXINE HCL 50 MG TABLET PO SCH (08:04)
[2023-05-19 19:53] VITALS: BP 120/73; PULSE 92; RESP 18; TEMP 98.5
[2023-05-20 04:55] VITALS: BP 101/59; PULSE 67; RESP 18; TEMP 98.1
[2023-05-20 07:14] LABS: BASOPHILS % (AUTO) 0.5 % (0.0-2.0); EOSINOPHILS % (AUTO) 4.5 % (1.0-6.0); HEMOGLOBIN 13.4 g/dL (13.5-17.5); LYMPHOCYTES # (AUTO) 2.8 K/uL (1.0-4.8); LYMPHOCYTES % (AUTO) 25.5 % (22.0-44.0); MEAN CORPUSCULAR HEMOGLOBIN 23.3 pg (26.0-34.0); MEAN CORPUSCULAR HGB CONC 31.8 G/dL (31.0-37.0); MEAN CORPUSCULAR VOLUME 73 fL (80-100); MONOCYTES # (AUTO) 1.2 K/uL (0.1-1.0); NEUTROPHILS # (AUTO) 6.3 K/uL (1.8-7.7); NEUTROPHILS % (AUTO) 58.5 % (40.0-70.0); PLATELET COUNT (AUTO) 425 K/uL (150-450); RED BLOOD CELL COUNT(AUTO) 5.74 MIL/uL (4.50-5.90); RED CELL DISTRIBUTION WIDTH 17.9 % (11.5-14.5)
[2023-05-20 07:43] LABS: ALANINE AMINOTRANSFERASE 48 U/L (12-78); ALBUMIN 2.7 g/dL (3.4-5.0); ALKALINE PHOSPHATASE 134 U/L (46-116); ANION GAP 8 mmol/L (8-16); ASPARTATE AMINOTRANSFERASE 21 U/L (15-37); BILIRUBIN,TOTAL 0.1 mg/dL (0.1-1.0); CALCIUM, TOTAL 9.2 mg/dL (8.8-10.5); CARBON DIOXIDE 29 mmol/L (22-29); CHLORIDE 103 mmol/L (98-107); CREATININE 0.84 mg/dL (0.60-1.30); GLOMERULAR FILTR. RATE CALC > 60 mL/min (>60); GLUCOSE,RANDOM 98 mg/dL (70-110); POTASSIUM 4.8 mmol/L (3.5-5.1); SODIUM SERUM 140 mmol/L (136-145); TOTAL PROTEIN, SERUM 7.9 g/dL (6.4-8.2)
[2023-05-20] MEDS: HEPARIN SODIUM,PORCINE 5,000 UNITS/ML VIAL SQ SCH ×3 (08:00→23:38)
[2023-05-20] MEDS: PANTOPRAZOLE SODIUM 40 MG DR TABLET PO SCH (08:05)
[2023-05-20] MEDS: ISONIAZID 300 MG TABLET PO SCH (08:05)
[2023-05-20] MEDS: ETHAMBUTOL HCL 400 MG TABLET PO SCH (08:05)
[2023-05-20] MEDS: DOCUSATE SODIUM 100 MG CAPSULE PO SCH ×2 (08:05→21:03)
[2023-05-20] MEDS: PYRAZINAMIDE 500 MG TABLET PO SCH (08:05)
[2023-05-20] MEDS: ETHAMBUTOL HCL 100 MG TABLET PO SCH (08:05)
[2023-05-20] MEDS: PYRIDOXINE HCL 50 MG TABLET PO SCH (08:05)
[2023-05-20] MEDS: RIFAMPIN 300 MG CAPSULE PO SCH (08:05)
[2023-05-20 08:27] VITALS: BP 114/68; PULSE 87; RESP 20; TEMP 97.8
[2023-05-20 16:53] VITALS: BP 117/72; PULSE 84; RESP 20; TEMP 98.2
[2023-05-20 20:08] VITALS: BP 122/71; PULSE 77; RESP 18; TEMP 99
[2023-05-21 05:33] VITALS: BP 113/72; PULSE 71; RESP 18; TEMP 97.9
[2023-05-21] MEDS: HEPARIN SODIUM,PORCINE 5,000 UNITS/ML VIAL SQ SCH ×3 (08:00→23:26)
[2023-05-21] MEDS: PYRAZINAMIDE 500 MG TABLET PO SCH (08:13)
[2023-05-21] MEDS: DOCUSATE SODIUM 100 MG CAPSULE PO SCH ×2 (08:13→21:14)
[2023-05-21] MEDS: ETHAMBUTOL HCL 100 MG TABLET PO SCH (08:13)
[2023-05-21] MEDS: PYRIDOXINE HCL 50 MG TABLET PO SCH (08:14)
[2023-05-21] MEDS: PANTOPRAZOLE SODIUM 40 MG DR TABLET PO SCH (08:14)
[2023-05-21] MEDS: ETHAMBUTOL HCL 400 MG TABLET PO SCH (08:14)
[2023-05-21] MEDS: RIFAMPIN 300 MG CAPSULE PO SCH (08:14)
[2023-05-21] MEDS: ISONIAZID 300 MG TABLET PO SCH (08:14)
[2023-05-21 08:28] VITALS: BP 116/74; PULSE 74; RESP 20; TEMP 98.4
[2023-05-21 15:32] VITALS: BP 122/78; PULSE 78; RESP 18; TEMP 97.9
[2023-05-21 19:39] VITALS: BP 106/67; PULSE 69; RESP 20; TEMP 98.7
[2023-05-22] MEDS ORDERED: ISONIAZID 300 MG TABLET PO SCH
[2023-05-22] MEDS ORDERED: PYRIDOXINE HCL 50 MG TABLET PO SCH
[2023-05-22] MEDS ORDERED: RIFAMPIN 300 MG CAPSULE PO SCH
[2023-05-22] MEDS ORDERED: ETHAMBUTOL HCL 400 MG TABLET PO SCH
[2023-05-22 04:51] VITALS: BP 104/60; PULSE 75; RESP 18; TEMP 98.2
[2023-05-22] MEDS: HEPARIN SODIUM,PORCINE 5,000 UNITS/ML VIAL SQ SCH ×2 (08:00→16:00)
[2023-05-22] MEDS: ISONIAZID 300 MG TABLET PO SCH (08:06)
[2023-05-22] MEDS: ETHAMBUTOL HCL 100 MG TABLET PO SCH (08:06)
[2023-05-22] MEDS: PANTOPRAZOLE SODIUM 40 MG DR TABLET PO SCH (08:06)
[2023-05-22] MEDS: ETHAMBUTOL HCL 400 MG TABLET PO SCH (08:06)
[2023-05-22] MEDS: RIFAMPIN 300 MG CAPSULE PO SCH (08:06)
[2023-05-22] MEDS: DOCUSATE SODIUM 100 MG CAPSULE PO SCH ×2 (08:06→21:00)
[2023-05-22] MEDS: PYRIDOXINE HCL 50 MG TABLET PO SCH (08:06)
[2023-05-22] MEDS: PYRAZINAMIDE 500 MG TABLET PO SCH (08:06)
[2023-05-22 09:07] VITALS: BP 121/70; PULSE 83; RESP 18; TEMP 98.5
[2023-05-22 17:24] VITALS: BP 132/93; PULSE 94; RESP 18; TEMP 98.6
[2023-05-22 20:04] VITALS: BP 125/76; PULSE 87; RESP 18; TEMP 98
[2023-05-23] MEDS ORDERED: PYRAZINAMIDE 500 MG TABLET PO SCH
[2023-05-23 04:45] VITALS: BP 111/71; PULSE 79; RESP 20; TEMP 97.6
[2023-05-23 07:25] VITALS: BP 118/74; PULSE 80; RESP 20; TEMP 97.9
[2023-05-23] MEDS: HEPARIN SODIUM,PORCINE 5,000 UNITS/ML VIAL SQ SCH ×2 (08:00)
[2023-05-23] MEDS: ETHAMBUTOL HCL 100 MG TABLET PO SCH (08:20)
[2023-05-23] MEDS: ETHAMBUTOL HCL 400 MG TABLET PO SCH (08:21)
[2023-05-23] MEDS: PYRAZINAMIDE 500 MG TABLET PO SCH (08:21)
[2023-05-23] MEDS: RIFAMPIN 300 MG CAPSULE PO SCH (08:21)
[2023-05-23] MEDS: DOCUSATE SODIUM 100 MG CAPSULE PO SCH (08:22)
[2023-05-23] MEDS: PANTOPRAZOLE SODIUM 40 MG DR TABLET PO SCH (08:22)
[2023-05-23] MEDS: ISONIAZID 300 MG TABLET PO SCH (08:22)
[2023-05-23] MEDS: PYRIDOXINE HCL 50 MG TABLET PO SCH (09:09)
== END 2023-05-23 15:15 | DRG 177 ==
LOC: EMS 10:52 → 5N 13:55 → 6S 04-19 16:05
PROVIDERS: ADMIT Hospitalist; ATTEND Hospitalist
PROC: 3E0234Z Introduction of Serum, Toxoid and Vaccine into Muscle, Percutaneous Approach (ICD-10-PCS; principal; 2023-04-14)
DX: A15.0 Tuberculosis of lung (principal); E43 Unspecified severe protein-calorie malnutrition; Z68.1 Body mass index [BMI] 19.9 or less, adult; D72.829 Elevated white blood cell count, unspecified; F17.210 Nicotine dependence, cigarettes, uncomplicated; J15.8 Pneumonia due to other specified bacteria; Z20.822 Contact with and (suspected) exposure to COVID-19; R74.01 Elevation of levels of liver transaminase levels; D75.838 Other thrombocytosis; F10.90 Alcohol use, unspecified, uncomplicated
CPT/HCPCS: 71045; 71046; 71250; 80053; 81001; 84145; 84484; 85025; 86480; 87015; 87081; 87149; 87188; 87206; 87389; 87556; 93005; 94640; 99285; C9113; J1644; J2543; J7030; J7040; J7050; 36415-L1; 36415-TC